=== PATIENT | male | born 1955 | race Caucasian/White ===

== ENCOUNTER 2016-04-16 09:09 | Inpatient (IN) ==
[2016-04-16 11:00] LABS: Basophils % 0.6 % (0.0-0.8); Eosinophils % 1.2 % (0.00-10.9); Hematocrit 21.9 VOL% (42.0-52.0); Immature Granulocytes % 0.3 %; Immature Granulocytes Absolute 0.01 #; Lymphocytes % 28.4 % (21.2-54.2); Mean Corpuscular HGB Conc 29.2 GM/DL (32-36); Mean Corpuscular Hemoglobin 24 PG (27-34); Mean Corpuscular Volume 80.8 FL (87-102); Mean Platelet Volume 10.3 FL (9.6-12.0); Monocytes # 0.4 10*3/uL (0.11-0.8); Monocytes % 10.4 % (1.7-12.7); Neutrophils % 59.1 % (38.7-73.9); Platelet Count 255 T/CUMM (130-400); Red Blood Count 2.71 MC/CUMM (3.8-5.5); Red Cell Distribution Width 14.7 % (9.3-17.3); White Blood Count 3.4 T/CUMM (4-12)
[2016-04-16 11:05] LABS: Hemoglobin 6.4 GM/DL (14.0-18.0)
--- NOTE | 2016-04-16 11:16 | Gastrointestinal H&P ---
Assessment and Plan (1) Iron (Fe) deficiency anemia Status: Acute Assessment and plan: We will admit and transfuse packed red blood cells for severe anemia. We will also need to consider possibility of IV iron due to his difficulty absorbing iron with his previous partial gastrectomy. Current Visit: Yes (2) Gastric outflow obstruction Status: Acute Assessment and plan: Plan repeat attempted EGD under fluoroscopy to allow wire to be passed and attempts to dilate his outflow restriction. Current Visit: Yes History of Present Illness Chief complaint: Severe iron deficiency anemia History of present illness: Mr. Platt is a 60 year old male Recently seen with complaints of progressive weakness, weight loss and recurrent nausea and vomiting. He has a prior history of partial gastric resection. 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 He has severe iron deficiency anemia with hematocrit of 24% is admitted now for transfusion of packed red blood cells due to high risk of comorbid conditions. We will also plan repeat attempt EGD under fluoroscopy to dilate his outlet obstruction. Possibility of surgery will also need to be entertained. Home Medications Medication Instructions Recorded Confirmed Type FLUoxetine [PROzac] 20 mg PO AC LUNCH 04/16/16 04/16/16 History Levothyroxine Tab [Synthroid Tab] 175 mcg PO DAILY@0700 04/16/16 04/16/16 History Morphine ER Tab [Ms Contin] 60 mg PO BID 04/16/16 04/16/16 History Morphine Sulfate [Morphine Sulfate 30 mg PO DIRECTED 04/16/16 04/16/16 History ER] Oxycodone HCl 15 mg PO Q8H PRN 04/16/16 04/16/16 History Pantoprazole Tab [Protonix Tab] 40 mg PO DAILY 04/16/16 04/16/16 History Ranitidine HCl [Zantac] 300 mg PO BEDTIME 04/16/16 04/16/16 History traZODone [Desyrel] 50 mg PO BEDTIME PRN 04/16/16 04/16/16 History Allergies Allergy/AdvReac Type Severity Reaction Status Date / Time No Known Allergies Allergy Verified 04/16/16 10:33 Medical,Surgical,& Family Hx - Medical History Rheumatology: History of;: Rheumatological Problems Gastrointestinal: History of: Bowel Obstruction, GI Problems Musculoskeletal: History of: Musculoskeletal Problems - Surgical History Abdominal Surgeries: Surgical HX of: Abdominal Surgery, Colonoscopy, EGD - Social History Smoking Status: Never smoker Frequency of Alcohol Use: None Type of Drug Use: None - Constitutional Constitutional: Present: fatigue. Absent: anorexia, chills, fever(s) - EENT Eyes: Absent: diplopia Ears: Absent: tinnitus Nose, mouth and throat: Absent: dysphagia, epistaxis - Cardiovascular Cardiovascular: Absent: chest pain at rest, chest pain with activity, edema - Respiratory Respiratory: Present: dyspnea on exertion - Gastrointestinal Gastrointestinal: Present: abdominal pain, bloating, nausea, vomiting - Genitourinary Genitourinary: Absent: flank pain, hematuria - Neurological Neurological: Absent: abnormal gait, abnormal speech - Psychiatric Psychiatric: Absent: anxiety - Endocrine Endocrine: Present: fatigue. Absent: cold intolerance, heat intolerance - Hematologic/Lymphatic Hematologic/Lymphatic: Absent: easy bleeding, easy bruising, lymphadenopathy Exam - Constitutional Vitals: Period Temp Pulse Resp BP Sys/[place] Pulse Ox Last 24 Hr 98.2 F 68 20 109/72 99 General appearance: normal weight, no acute distress - Head Head exam: Present: normal inspection, normocephalic, atraumatic - Eye Eye exam: Present: EOMI. Absent: conjunctival injection, scleral icterus Pupils: Present: VELVET. Absent: dilated - ENT ENT exam: Present: normal oropharynx - Neck Neck exam: Absent: lymphadenopathy, thyromegaly - Respiratory Respiratory exam: Present: clear to auscultation bilaterally. Absent: accessory muscle use, rales - Cardiovascular Cardiovascular exam: Present: regular rate and rhythm. Absent: systolic murmur - GI/Abdominal GI/Abdominal exam: Present: normal bowel sounds. Absent: ascites, mass - Extremities Exam Extremities exam: Absent: edema - Back Exam Back exam: Present: normal inspection - Neurological Exam Neurological exam: Present: alert, oriented X3 - Psychiatric Psychiatric exam: Present: normal affect, normal mood - Skin Skin exam: Present: warm, dry, pallor Results - Labs CBC & BMP: 04/16/16 10:42 Quality Measures - Stroke Symptom Onset Unknown: No
[2016-04-16 11:35] LABS: Albumin 3.1 G/DL (3.4-5.0); Bilirubin,Total 0.7 MG/DL (0.2-1.0); Calcium 8.1 MG/DL (8.5-10.1); Osmolality,Calculated 290.7 MOS/KG (273-304); Potassium 4.7 MMOL/L (3.5-5.1); Total Protein 5.6 G/DL (6.4-8.3)
[2016-04-16] MEDS ORDERED: SODIUM CHLORIDE 0.9% 250 ML IV PRN (11:37)
[2016-04-16] MEDS: SODIUM CHLORIDE 0.9% 1,000 ML IV SCH ×2 (13:27→21:30)
[2016-04-17] MEDS: SODIUM CHLORIDE 0.9% 1,000 ML IV SCH ×2 (04:15→14:48)
[2016-04-17 05:59] LABS: Basophils % 0.9 % (0.0-0.8); Eosinophils # 0.1 10*3/uL (0.0-0.87); Hematocrit 26.3 VOL% (42.0-52.0); Hemoglobin 8.2 GM/DL (14.0-18.0); Immature Granulocytes % 0.3 %; Immature Granulocytes Absolute 0.01 #; Lymphocytes # 1.3 10*3/uL (1.4-4.0); Lymphocytes % 38.3 % (21.2-54.2); Mean Corpuscular HGB Conc 31.2 GM/DL (32-36); Mean Corpuscular Hemoglobin 25 PG (27-34); Mean Corpuscular Volume 78.7 FL (87-102); Mean Platelet Volume 10.6 FL (9.6-12.0); Monocytes # 0.4 10*3/uL (0.11-0.8); Monocytes % 11.8 % (1.7-12.7); Neutrophils # 1.6 10*3/uL (1.4-7.4); Neutrophils % 46.7 % (38.7-73.9); Platelet Count 253 T/CUMM (130-400); Red Blood Count 3.34 MC/CUMM (3.8-5.5); Red Cell Distribution Width 14.7 % (9.3-17.3); White Blood Count 3.5 T/CUMM (4-12)
[2016-04-17 06:33] LABS: Hypochromasia 1+
[2016-04-17 06:34] LABS: Microcytosis 1+; Platelet Estimate Adequate
[2016-04-17 06:39] LABS: Albumin 2.9 G/DL (3.4-5.0); Bilirubin,Total 0.5 MG/DL (0.2-1.0); Osmolality,Calculated 287.6 MOS/KG (273-304); Potassium 4.4 MMOL/L (3.5-5.1); Total Protein 5.5 G/DL (6.4-8.3)
[2016-04-17] MEDS ORDERED: LIDOCAINE 2% 5 ML VIAL ONE (11:50)
[2016-04-17] MEDS ORDERED: PROPOFOL 200 MG/20 ML VIAL IV ONE (11:50)
[2016-04-17] MEDS ORDERED: ONDANSETRON 4 MG/2 ML VIAL ONE (11:50)
--- NOTE | 2016-04-17 12:22 | Operative Note ---
Date of procedure: 04/17/16 Pre-op diagnosis: Anastomotic stricture Procedure: EGD with fluoroscopically guided wire placement for attempted savory dilatation and TTS balloon dilation Anastomotic stricture noted on prior EGD unable to pass with the scope now for repeat attempt with fluoroscopic guidance. Informed symptoms obtained the patient He was sedated with [facility] anesthesia anesthesia protocol. Patient was placed in left lateral decubitus position the Olympus flexible video upper endoscope was inserted into the oral cavity under direct vision the esophagus was intubated. Findings esophagus-normal esophageal mucosa throughout Stomach-normal insufflation there is retained food and again notation is made of his Billroth II anatomy with occluded E efferent limb. We were able to easily intubate the afferent limb. Subsequently a guidewire was passed through the anastomotic stricture under fluoroscopic guidance. Utilizing is a 51 savory dilator was passed without difficulty. The guidewire dilator were removed and subsequently repeat endoscopy revealed continued obstruction and inability to pass the endoscope. It was subsequently elected to initiate TTS balloon dilatation and a in full insufflation to 18 mm balloon for 30 seconds this was deflated and then it was again inflated to 19 mm for a full minute. This was deflated and at this point we could get the scope to pass the anastomosis. No tumor or other restriction was identified. No clear perforation or active bleeding was noted. The procedure was terminated patient discharged recovery in good condition. Postop diagnosis 1. 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 Will observe clinical response and check upper GI series to document patency. Repeat dilatation versus surgical revision will be discussed. Anesthesia: [facility] Surgeon / Physician: Flip Stearns Estimated blood loss: none Specimens: none sent Condition: stable Disposition: post procedure unit Results - Labs CBC & BMP: 04/17/16 05:30 04/17/16 05:30 Discharge Plan - Discharge Medications No Action FLUoxetine [PROzac] 20 mg PO AC LUNCH traZODone [Desyrel] 50 mg PO BEDTIME PRN PRN Reason: Insomnia Morphine Sulfate [Morphine Sulfate ER] 30 mg PO DIRECTED Ranitidine HCl [Zantac] 300 mg PO BEDTIME Oxycodone HCl 15 mg PO Q8H PRN PRN Reason: Pain Morphine ER Tab [Ms Contin] 60 mg PO BID Levothyroxine Tab [Synthroid Tab] 175 mcg PO DAILY@0700 Pantoprazole Tab [Protonix Tab] 40 mg PO DAILY - Follow Up or Referral - Forms/Instructions
--- NOTE | 2016-04-17 12:28 | Anesthesia ---
Anesthesia Post OP - Post Ansesthetic Evaluation Patient seen in post op: Yes Resp: within normal limits CV: within normal limits Mental: within normal limits Temp: within normal limits [id number]: within normal limits Nausea and Vomiting: within normal limits Pain: within normal limits
[2016-04-17] MEDS ORDERED: SODIUM CHLORIDE 0.9% IV ONE (12:45)
[2016-04-17] MEDS ORDERED: IRON DEXTRAN IV ONE (12:45)
[2016-04-17] MEDS ORDERED: traZODone 50 MG TABLET PO PRN (14:32)
[2016-04-17] MEDS: MORPHINE ER 30 MG TABLET PO SCH ×2 (14:55→20:17)
[2016-04-17] MEDS: oxyCODONE IR 5 MG TABLET PO PRN (14:56)
--- NOTE | 2016-04-17 15:46 | XRay Report ---
XR abdomen 2V Indication: Balloon dilation of anastomotic stricture. Abdomen 3 views: Cholecystectomy clips noted. Ingested material is present within the stomach which appears distended. Several loops of gaseous distended but not dilated small bowel present centrally, and there is a slightly prominent right upper quadrant colon noted that is not dilated, but overlies the liver. Some stool and gas seen in the colon, including the rectal vault. No free air identified. Impression: Somewhat unusual bowel gas pattern without clear obstruction present, and no evidence of pneumoperitoneum. Central gaseous distended small bowel is present but stool and gas is present in the colon as well. Suspect severe ileus. Gastric contents are of indeterminate significance. PROCEDURE INTERPRETED AT [facility] DEPARTMENT OF RADIOLOGY Final Report Signed by: Luis A Dumont M.D.
[2016-04-17] MEDS: ALUMINUM/MAGNES/SIMETH MAX STR 30 ML UDCUP PO PRN (16:26)
[2016-04-17] MEDS: HYDROmorphone 2 MG/1 ML VIAL IV PRN (16:27)
[2016-04-17] MEDS: FAMOTIDINE 20 MG TABLET PO SCH (20:17)
[2016-04-18] MEDS: SODIUM CHLORIDE 0.9% 1,000 ML IV SCH ×3 (00:15→16:30)
[2016-04-18] MEDS: oxyCODONE IR 5 MG TABLET PO PRN ×2 (04:37→16:29)
[2016-04-18] MEDS: LEVOTHYROXINE 175 MCG TABLET PO SCH (06:37)
[2016-04-18 06:42] LABS: Basophils % 0.1 % (0.0-0.8); Hematocrit 28.3 VOL% (42.0-52.0); Hemoglobin 8.5 GM/DL (14.0-18.0); Immature Granulocytes % 0.5 %; Immature Granulocytes Absolute 0.09 #; Lymphocytes # 1.2 10*3/uL (1.4-4.0); Lymphocytes % 6.5 % (21.2-54.2); Mean Corpuscular Hemoglobin 25 PG (27-34); Mean Corpuscular Volume 81.6 FL (87-102); Mean Platelet Volume 10.8 FL (9.6-12.0); Monocytes # 0.5 10*3/uL (0.11-0.8); Monocytes % 2.5 % (1.7-12.7); Neutrophils % 90.4 % (38.7-73.9); Platelet Count 257 T/CUMM (130-400); Red Blood Count 3.47 MC/CUMM (3.8-5.5); White Blood Count 18.8 T/CUMM (4-12)
--- NOTE | 2016-04-18 08:17 | Gastrointestinal Progress Note ---
Assessment and Plan (1) Small bowel anastomotic stricture Status: Acute Assessment and plan: This patient is being seen for Dr. Stearns who is off this weekend. This patient has Billroth II anatomy and was found yesterday to have an anastomotic stricture of the efferent limb on EGD that required balloon dilation. Post- dilation he did experience some significant abdominal pain but this pain has improved over the evening time down to 5 out of 10 in intensity. The patient has chronic pain due to psoriatic arthritis, he did have a low-grade temperature last night to 100.8 but this is spontaneously improved. His white count however has increased from 3.4-->18.8, and this combined with the recent balloon dilatation of the efferent limb of the Billroth II other reasons I'm going to start him on some Cipro and Flagyl. We will see how he tolerates a clear liquid diet today and we may advance his diet tomorrow if he is still improving, and his white count is down. Clinically he seems vastly improved and I suspect he had some transient bacteremia with the dilation. He does not have an acute abdomen. Current Visit: Yes (2) Iron (Fe) deficiency anemia Status: Acute Assessment and plan: Iron dextran given, we will continue to monitor his hematocrit to see if he improves with this bolus of iron over time. Current Visit: Yes (3) Gastric outflow obstruction Status: Acute Assessment and plan: We will watch and see how well he tolerates his clear liquid diet at this point , anastomosis was visualized directly after the dilation and did not appear to have any suspicious features of perforation. Cipro and Flagyl started due to increased white blood cell count, we will continue to monitor this along with physical exam. Hold off on advancement of diet for now. Current Visit: Yes Gastroenterology - PN: Subj Interval history: The patient experienced a low-grade temperature last night but was able to pass a great deal of flatus and his pain is now down to about 5 out of 10 in intensity. White blood cell count has increased from 3000-->18,000 and oh his abdomen feels better we'll likely start some Cipro/Flagyl as he is penicillin allergic to help cover him for transient bacteremia. Exam (Progress Note) - Constitutional Vitals: Period Temp Pulse Resp BP Sys/[place] Pulse Ox Last 24 Hr 98.2 F-100.8 F 48-89 14-19 96-126/48-80 89-100 General appearance: no acute distress - Head Head exam: Present: normocephalic - Eye Eye exam: Present: EOMI Pupils: Present: VELVET - Cardiovascular Cardiovascular exam: Present: regular rate and rhythm - GI/Abdominal GI/Abdominal exam: Present: normal bowel sounds, tenderness (mild periumbilical tenderness), soft. Absent: distended, guarding, rebound - Extremities Exam Extremities exam: Absent: edema - Neurological Exam Neurological exam: Present: alert, oriented X3, CN II-XII intact. Absent: motor sensory deficit - Psychiatric Psychiatric exam: Present: normal affect, normal mood - Skin Skin exam: Present: warm Results - Labs CBC & BMP: 04/18/16 05:55 04/17/16 05:30
[2016-04-18] MEDS: CIPROFLOXACIN INJ 400 MG in PREMIX 1 EACH IV SCH ×2 (09:01→20:14)
[2016-04-18] MEDS: PANTOPRAZOLE 40 MG TABLET PO SCH (09:02)
[2016-04-18] MEDS: MORPHINE ER 30 MG TABLET PO SCH ×3 (09:02→20:13)
[2016-04-18] MEDS: metroNIDAZOLE INJ 500 MG in PREMIX 1 EACH IV SCH ×2 (11:43→18:46)
[2016-04-18] MEDS: FLUoxetine 20 MG CAPSULE PO SCH (11:43)
[2016-04-18] MEDS: FAMOTIDINE 20 MG TABLET PO SCH (20:13)
[2016-04-18] MEDS: ALUMINUM/MAGNES/SIMETH MAX STR 30 ML UDCUP PO PRN (20:13)
[2016-04-18] MEDS: ACETAMINOPHEN 325 MG TABLET PO PRN (23:44)
[2016-04-19] MEDS: metroNIDAZOLE INJ 500 MG in PREMIX 1 EACH IV SCH ×3 (02:57→17:05)
[2016-04-19] MEDS: LEVOTHYROXINE 175 MCG TABLET PO SCH (06:26)
[2016-04-19 06:43] LABS: Basophils % 0.2 % (0.0-0.8); Hematocrit 27.6 VOL% (42.0-52.0); Hemoglobin 8.4 GM/DL (14.0-18.0); Immature Granulocytes % 1.1 %; Immature Granulocytes Absolute 0.16 #; Lymphocytes % 6.8 % (21.2-54.2); Mean Corpuscular HGB Conc 30.4 GM/DL (32-36); Mean Corpuscular Hemoglobin 25 PG (27-34); Mean Corpuscular Volume 80.5 FL (87-102); Mean Platelet Volume 11.4 FL (9.6-12.0); Monocytes # 0.5 10*3/uL (0.11-0.8); Monocytes % 3.4 % (1.7-12.7); Neutrophils # 13.4 10*3/uL (1.4-7.4); Neutrophils % 88.5 % (38.7-73.9); Platelet Count 240 T/CUMM (130-400); Red Blood Count 3.43 MC/CUMM (3.8-5.5); Red Cell Distribution Width 15.2 % (9.3-17.3); White Blood Count 15.2 T/CUMM (4-12)
[2016-04-19] MEDS: SODIUM CHLORIDE 0.9% 1,000 ML IV SCH ×2 (07:11→17:42)
--- NOTE | 2016-04-19 08:29 | Gastrointestinal Progress Note ---
Assessment and Plan (1) Small bowel anastomotic stricture Status: Acute Assessment and plan: This patient is being seen for Dr. Stearns who is off this weekend. This patient has Billroth II anatomy and was found yesterday to have an anastomotic stricture of the efferent limb on EGD that required balloon dilation. Post- dilation he did experience some significant abdominal pain but this pain has improved over the evening time down to 5 out of 10 in intensity. The patient has chronic pain due to psoriatic arthritis, he did have a low-grade temperature last night to 100.8 but this is spontaneously improved. His white count however has increased from 3.4-->18.8, and this combined with the recent balloon dilatation of the efferent limb of the Billroth II other reasons I'm going to start him on some Cipro and Flagyl. We will see how he tolerates a clear liquid diet today and we may advance his diet tomorrow if he is still improving, and his white count is down. Clinically he seems vastly improved and I suspect he had some transient bacteremia with the dilation. He does not have an acute abdomen. 04/19/16-- the patient is again seen today after spiking a temperature last night up to 102.9 at about 11 p.m. Temperature is improved now. He notes he was started on Flagyl and Cipro due to his penicillin allergy yesterday morning. No blood cultures have been obtained but I have written to obtain these temperature gets above 101 today. Due to the white blood cell count going up to 18,800 (currently down to 15.2) and the recent dilation going to have the patient undergo CT scanning with Gastrografin contrast to look for extraluminal abscess/contrast extravasation. We may need to get surgery involved. The patient has some pain in his belly but states that this is a 5 out of 10 similar to yesterday. Most of his pain is in the back. CBC written for tomorrow as well. Current Visit: Yes (2) Iron (Fe) deficiency anemia Status: Acute Assessment and plan: Iron dextran given, we will continue to monitor his hematocrit to see if he improves with this bolus of iron over time. 04/19/16-- The iron dextran infused without difficulty, hematocrit stable at 27.6%. This should improve over time. Current Visit: Yes (3) Gastric outflow obstruction Status: Acute Assessment and plan: We will watch and see how well he tolerates his clear liquid diet at this point , anastomosis was visualized directly after the dilation and did not appear to have any suspicious features of perforation. Cipro and Flagyl started due to increased white blood cell count, we will continue to monitor this along with physical exam. Hold off on advancement of diet for now. 04/19/16--the temperature increased to 102.9 is concerning for transient bacteremia versus per luminal abscess, we are awaiting a CT scan with Gastrografin contrast today to see if extravasation is present. His kidney function will allow for IV contrast as well. We may need to involve surgery if abscess is seen for surgical revision of the Billroth II/drainage vs. IR perc. drain. Current Visit: Yes Gastroenterology - PN: Subj Interval history: This is a patient of Dr. Stearns'praveen who recently had a efferent limb of Billroth II balloon dilated on 04/17/16 due to stricturing. The patient is still having some abdominal pain which he describes as 5 out of 10 in intensity in the periumbilical region. This states that this is less than his back pain which he describes as 7 out of 10 in intensity. Unfortunately over the evening time, approximately 11 p.m. last night patient spiked a temperature up to 102.9. I was not called and no blood cultures were taken. The patient was started yesterday on a combination of Cipro and Flagyl due to an increase in white blood cell count from 3000-->18,000. After the initiation of antibiotics this is improved down to 15,000, his belly seems less distended he is having brown diarrhea clinically. He is tolerating his clears. Exam (Progress Note) - Constitutional Vitals: Period Temp Pulse Resp BP Sys/[place]agua Pulse Ox Last 24 Hr 98.6 F-102.9 F 68-87 18-18 96-126/55-68 90-99 General appearance: no acute distress - Head Head exam: Present: normocephalic - Eye Eye exam: Present: EOMI - Respiratory Respiratory exam: Present: clear to auscultation bilaterally. Absent: rhonchi, wheezes - Cardiovascular Cardiovascular exam: Present: regular rate and rhythm - GI/Abdominal GI/Abdominal exam: Present: normal bowel sounds, tenderness (periumbilical mild tenderness to palpation but certainly no guarding or rebound), soft. Absent: distended, guarding, rebound - Extremities Exam Extremities exam: Present: normal inspection - Neurological Exam Neurological exam: Present: alert, oriented X3 - Psychiatric Psychiatric exam: Present: normal affect, normal mood, anxious - Skin Skin exam: Present: warm Results - Labs CBC & BMP: 04/19/16 05:24 04/17/16 05:30
[2016-04-19] MEDS: MORPHINE ER 30 MG TABLET PO SCH ×3 (08:59→20:40)
[2016-04-19] MEDS: PANTOPRAZOLE 40 MG TABLET PO SCH (08:59)
[2016-04-19] MEDS: CIPROFLOXACIN INJ 400 MG in PREMIX 1 EACH IV SCH ×2 (08:59→20:42)
--- NOTE | 2016-04-19 10:55 | CT Report ---
History: Fever, elevated white blood cell count. Abdominal pain. Recent balloon dilatation of Billroth II anastomosis Date: 04/19/2016 Study: CT abdomen with IV and oral contrast Comparison exam: Abdominal CT May 10, 2012 Technique: Spiral CT sections were obtained from the lung bases to the iliac crests following oral contrast and 100 mL Omnipaque 350 IV. Total DLP measures 511.4 mGy*cm. Critical test result. Dr. Carty was given a preliminary verbal report by telephone at 10:43 AM There is mild strandy subsegmental atelectasis in the lung bases. There is mild left greater than right pleural effusion. There is mild perihepatic and perisplenic ascites. There is some minimal gas density bubble formation under the right hemidiaphragm compatible with pneumoperitoneum, measuring less than 3 cc. There is mild diffuse fatty infiltration of the liver without definite discrete hepatic mass. There is slight biliary ectasia which could be the patient's baseline postsurgical appearance in this patient status post previous cholecystectomy. The spleen, pancreas, adrenal glands, and kidneys are generally unremarkable. There is bilateral renal excretion without hydronephrosis. The patient is status post previous Billroth II procedure. There is asymmetric mucosal thickening at the gastrojejunostomy surgical anastomosis which could be inflammatory rather than neoplastic. There is no obvious large rent at the anastomotic site/presumed angioplasty site. There is no well-circumscribed fluid collection to suggest abscess. There is a tiny periumbilical hernia containing only fat. There is diverticulosis without tiffany diverticulitis. There is no aneurysm of the abdominal aorta. There is some scattered degenerative disc disease of the spine. Impression: Minimal pneumoperitoneum, suggesting underlying perforated viscus. No abscess is seen where visualized. There is some mild perihepatic and perisplenic ascites. There is mucosal thickening of an irregular nature at the gastrojejunostomy anastomosis. This could be related to inflammatory change rather than neoplasm. Mild bibasilar atelectasis and pleural effusion PROCEDURE INTERPRETED AT [facility] DEPARTMENT OF RADIOLOGY Final Report Signed by: Dr. Betsy Walsh
[2016-04-19] MEDS: FLUoxetine 20 MG CAPSULE PO SCH (11:18)
--- NOTE | 2016-04-19 12:32 | General Surgery Consult Note ---
Assessment and Plan - Time spent with patient Time spent with patient: Less than 30 minutes (1) Intra-abdominal free air of unknown etiology Status: Acute Assessment and plan: Impression: 1. Minimal amount of intraperitoneal free air following dilatation of stricture 2. Gastric outlet obstruction due to stenosis status post dilatation Plan: We will observe for now with IV fluids and sips of water. Surgery if he becomes worse But if he remains stable and improved without problems and we may be able to just observe it for now. Current Visit: Yes History of Present Illness Chief complaint: small amount of free air following dilatation History of present illness: Mr. Platt is a 60 year old male white who in 2012 Dr. Hawley did a Billroth II surgery on the patient. He returns with a stenosis of the afferent limb and Dr. Stearns took him to endoscopy and did a EGD with a dilatation of the an anastomotic stenosis. Essentially did well complaining a little back pain a little fever and elevated white count the next day. White count is down 15,000 today and generally feeling okay but CT scan showed a small amount of free air in the area of the dilatation anastomosis. No fluid seen no abscess and there was no drainage of Gastrografin at the time of the CT. He generally looks in pretty good shape with minimal tenderness and just hypoactive bowel sounds at this time. Probably best to just observe him at this point time with IV fluids and antibiotics and just him sips of water for now. Home Medications Medication Instructions Recorded Confirmed Type FLUoxetine [PROzac] 20 mg PO AC LUNCH 04/16/16 04/16/16 History Levothyroxine Tab [Synthroid Tab] 175 mcg PO DAILY@0700 04/16/16 04/16/16 History Morphine ER Tab [Ms Contin] 60 mg PO BID 04/16/16 04/16/16 History Morphine Sulfate [Morphine Sulfate 30 mg PO DIRECTED 04/16/16 04/16/16 History ER] Oxycodone HCl 15 mg PO Q8H PRN 04/16/16 04/16/16 History Pantoprazole Tab [Protonix Tab] 40 mg PO DAILY 04/16/16 04/16/16 History Ranitidine HCl [Zantac] 300 mg PO BEDTIME 04/16/16 04/16/16 History traZODone [Desyrel] 50 mg PO BEDTIME PRN 04/16/16 04/16/16 History Allergies Allergy/AdvReac Type Severity Reaction Status Date / Time Penicillins Allergy RASH Verified 04/17/16 11:19 Medical,Surgical,& Family Hx - Medical History Rheumatology: History of;: Rheumatological Problems Gastrointestinal: History of: Bowel Obstruction, GI Problems Musculoskeletal: History of: Musculoskeletal Problems - Surgical History Abdominal Surgeries: Surgical HX of: Abdominal Surgery, Colonoscopy, EGD - Social History Smoking Status: Never smoker Frequency of Alcohol Use: None Type of Drug Use: None 12 point system: reviewed and no additional remarkable complaints except as stated Exam - Constitutional Vitals: Period Temp Pulse Resp BP Sys/[place] Pulse Ox Last 24 Hr 98.6 F-102.9 F 78-87 18-18 103-126/58-68 94-99 General appearance: mild distress - Head Head exam: Present: normal inspection - ENT ENT exam: Present: normal exam - Neck Neck exam: Present: normal inspection - Respiratory Respiratory exam: Present: clear to auscultation bilaterally, rales - Cardiovascular Cardiovascular exam: Present: RRR - GI/Abdominal GI/Abdominal exam: Present: hypoactive bowel sounds, tenderness (mild in the RUQ ), soft. Absent: guarding - Extremities Exam Extremities exam: Present: normal inspection - Neurological Exam Neurological exam: Present: alert, oriented X3, CN II-XII intact - Skin Skin exam: Present: normal color, warm, dry Quality Measures - Stroke Symptom Onset Unknown: No Results - Labs CBC & BMP: 04/19/16 05:24 04/17/16 05:30 Lab Results: I have reviewed the past 24 hour labs
[2016-04-19] MEDS: ACETAMINOPHEN 325 MG TABLET PO PRN (14:30)
[2016-04-19] MEDS: oxyCODONE IR 5 MG TABLET PO PRN (18:22)
[2016-04-19] MEDS: FAMOTIDINE 20 MG TABLET PO SCH (20:41)
[2016-04-20] MEDS: SODIUM CHLORIDE 0.9% 1,000 ML IV SCH ×3 (02:15→22:44)
[2016-04-20] MEDS: metroNIDAZOLE INJ 500 MG in PREMIX 1 EACH IV SCH ×4 (02:31→17:36)
[2016-04-20 06:20] LABS: Basophils % 0.2 % (0.0-0.8); Hematocrit 25.3 VOL% (42.0-52.0); Hemoglobin 7.8 GM/DL (14.0-18.0); Immature Granulocytes % 1.3 %; Immature Granulocytes Absolute 0.21 #; Lymphocytes # 0.7 10*3/uL (1.4-4.0); Lymphocytes % 4.3 % (21.2-54.2); Mean Corpuscular HGB Conc 30.8 GM/DL (32-36); Mean Corpuscular Hemoglobin 25 PG (27-34); Mean Corpuscular Volume 79.8 FL (87-102); Mean Platelet Volume 10.9 FL (9.6-12.0); Monocytes # 0.6 10*3/uL (0.11-0.8); Monocytes % 3.7 % (1.7-12.7); Neutrophils # 14.7 10*3/uL (1.4-7.4); Neutrophils % 90.5 % (38.7-73.9); Platelet Count 237 T/CUMM (130-400); Red Blood Count 3.17 MC/CUMM (3.8-5.5); Red Cell Distribution Width 15.5 % (9.3-17.3); White Blood Count 16.2 T/CUMM (4-12)
[2016-04-20] MEDS: LEVOTHYROXINE 175 MCG TABLET PO SCH (06:31)
[2016-04-20 06:43] LABS: Hypochromasia 1+; Polychromasia Slight
[2016-04-20 06:50] LABS: Albumin 2.5 G/DL (3.4-5.0); Bilirubin,Total 0.9 MG/DL (0.2-1.0); Calcium 7.6 MG/DL (8.5-10.1); Osmolality,Calculated 284.8 MOS/KG (273-304); Potassium 4.1 MMOL/L (3.5-5.1); Total Protein 5.3 G/DL (6.4-8.3)
--- NOTE | 2016-04-20 08:20 | Gastrointestinal Progress Note ---
<Ellen Law - Last Filed: 04/20/16 08:16> Assessment and Plan (1) Small bowel anastomotic stricture Status: Acute Assessment and plan: 04/20-Abd pain over weekend with findings of small amount of free air under right hemidiaphragm. Tolerating jellos, liquids only at present. Hemoglobin down from 8.4 to 7.8 w/o overt bleeding. WBC trending down at 16.2. Continue to monitor at present time. Plan and addendum to follow by Dr Stearns. Current Visit: Yes Gastroenterology - PN: Subj Interval history: CC: Anastomotic stricture Pt is awake and alert lying in bed. States he is feeling better today after he has a large watery bowel movement. Denies any melena or hematochezia. Hgb down from 8.4 to 7.8. WBC trending down. States that he is having some continued pain but is afraid to take the narcotics due to made him sick yesterday on an empty stomach. He states the pain is manageable at present time. Events over the weekend noted with small amount of free air found on CT. Dr Kang was consulted and felt this is not surgical at present time. Pt was only able to tolerate jello and liquids over the weekend. He is non toxic appearing this morning, seems to be fairly comfortable. Abdomen is soft, nontender. ROS: Denies SOB or chest pain Exam (Progress Note) - Constitutional Vitals: Period Temp Pulse Resp BP Sys/[place] Pulse Ox Last 24 Hr 98.2 F-100.2 F 72-87 14-18 109-126/62-70 93-96 General appearance: normal weight, no acute distress - Head Head exam: Present: normal inspection, normocephalic - Eye Eye exam: Present: other (lids and conjunctiva unremarkable). Absent: scleral icterus - ENT ENT exam: Present: normal exam, normal oropharynx - Neck Neck exam: Present: normal inspection - Respiratory Respiratory exam: Present: clear to auscultation bilaterally. Absent: rales, rhonchi, wheezes - Cardiovascular Cardiovascular exam: Present: regular rate and rhythm. Absent: diastolic murmur , JVD, systolic murmur - GI/Abdominal GI/Abdominal exam: Present: normal bowel sounds, soft. Absent: ascites, distended, mass, organomegaly, tenderness - Extremities Exam Extremities exam: Present: normal inspection, full ROM - Back Exam Back exam: Present: normal inspection - Neurological Exam Neurological exam: Present: alert, oriented X3 - Psychiatric Psychiatric exam: Present: normal affect, normal mood - Skin Skin exam: Present: normal color, warm, dry Results - Labs CBC & BMP: 04/20/16 05:27 04/20/16 05:27 Lab Results: I have reviewed the past 24 hour labs <Flip Stearns - Last Filed: 04/20/16 18:22> Assessment and Plan (1) Iron (Fe) deficiency anemia Status: Acute Current Visit: Yes (2) Gastric outflow obstruction Status: Acute Current Visit: Yes Exam (Progress Note) - Constitutional Vitals: Period Temp Pulse Resp BP Sys/[place] Pulse Ox Last 24 Hr 97.9 F-100.2 F 67-87 14-18 110-141/60-76 93-97 Results - Labs CBC & BMP: 04/20/16 05:27 04/20/16 05:27
[2016-04-20] MEDS: CIPROFLOXACIN INJ 400 MG in PREMIX 1 EACH IV SCH ×2 (08:55→20:57)
[2016-04-20] MEDS: PANTOPRAZOLE 40 MG TABLET PO SCH (08:57)
[2016-04-20] MEDS: MORPHINE ER 30 MG TABLET PO SCH ×3 (08:57→20:56)
[2016-04-20] MEDS: HYDROmorphone 2 MG/1 ML VIAL IV PRN (09:02)
[2016-04-20] MEDS: FLUoxetine 20 MG CAPSULE PO SCH ×2 (10:26→11:23)
--- NOTE | 2016-04-20 11:43 | General Surgery Progress Note ---
Assessment and Plan (1) Intra-abdominal free air of unknown etiology Status: Acute Assessment and plan: Impression: 1. Minimal amount of intraperitoneal free air following dilatation of stricture 2. Gastric outlet obstruction due to stenosis status post dilatation Plan: We will observe for now with IV fluids and sips of water. Surgery if he becomes worse But if he remains stable and improved without problems and we may be able to just observe it for now. 04/20/2016 Patient had a fairly good night in the evening his white count is 16,000 today and his hematocrit is down to 25. He's not complained of a lot of discomfort at this time has had no nausea during the night. His abdomen is flat soft there is hypoactive bowel sounds no unusual guarding or tenderness noted. At this point he seems to be stable with no unusual problems associated with the air the seen. He's tolerated water without any problems. I think the well to go ahead and try some clear liquids on him and see how he does with that. Current Visit: Yes Subjective Patient reports: Present: no new complaints, feels better, tolerating liquids well, afebrile. Absent: vomiting Exam - Constitutional Vitals: Period Temp Pulse Resp BP Sys/[place] Pulse Ox Last 24 Hr 97.9 F-100.2 F 72-87 14-18 109-126/62-73 93-97 General appearance: mild distress - Head Head exam: Present: normal inspection - ENT ENT exam: Present: normal exam - Neck Neck exam: Present: normal inspection - Respiratory Respiratory exam: Present: clear to auscultation bilaterally, rales - Cardiovascular Cardiovascular exam: Present: RRR - GI/Abdominal GI/Abdominal exam: Present: hypoactive bowel sounds, soft. Absent: distended, tenderness - Extremities Exam Extremities exam: Present: normal inspection - Neurological Exam Neurological exam: Present: alert, oriented X3, CN II-XII intact - Skin Skin exam: Present: normal color, warm, dry Results - Labs CBC & BMP: 04/20/16 05:27 04/20/16 05:27 Lab Results: I have reviewed the past 24 hour labs Quality Measures - Stroke Symptom Onset Unknown: No
--- NOTE | 2016-04-20 13:10 | Physician Query Form ---
CLICK EDIT DOCUMENT TO SELECT QUERY ANSWER --> OK --> SIGN Madison Hopkins RN, CCDS Certified Clinical Pure Culture Operator W) [phone] (f) [phone] [email or web address] PROVIDERS: Make your selection(s) from the choices in EACH section by typing an "x" and enter comments in the comment section. Please use your independent medical judgment in providing your response. This request does not imply that any particular answer is desired or expected. CLINICAL INDICATORS: (Providers should not edit this section) "Anastomotic stricture at the efferent limb of the Billroth II anastomosis now successfully balloon dilated". In your clinical opinion can you please clarify the location of the Dilation? Based on the above, could you clarify the appropriate diagnosis, if significant , that supports the above abnormalities and additional evaluation, monitoring, and/or treatment rendered: ( x) Anastomotic Stricture located in the duodenum ( ) Anastomotic Stricture located in the Jejunum ( ) Anastomotic stricture located in the ( ) Other, please specify: ( ) Clinically unable to determine COMMENTS: Use of terms such as suspected, likely, or probable (associated with a specific diagnosis that is being evaluated, monitored, or treated as if it exists) are acceptable and can be restated in the discharge summary if not ruled out. MTDD
[2016-04-20] MEDS: oxyCODONE IR 5 MG TABLET PO PRN (16:51)
[2016-04-20] MEDS: FAMOTIDINE 20 MG TABLET PO SCH (20:57)
[2016-04-21] MEDS: ACETAMINOPHEN 325 MG TABLET PO PRN (00:45)
[2016-04-21] MEDS: metroNIDAZOLE INJ 500 MG in PREMIX 1 EACH IV SCH ×3 (02:07→17:46)
[2016-04-21] MEDS: LEVOTHYROXINE 175 MCG TABLET PO SCH (06:09)
[2016-04-21 06:34] LABS: Calcium 7.5 MG/DL (8.5-10.1); Magnesium 2.1 MG/DL (1.8-2.4); Osmolality,Calculated 286.7 MOS/KG (273-304); Potassium 3.1 MMOL/L (3.5-5.1)
[2016-04-21] MEDS: PANTOPRAZOLE 40 MG TABLET PO SCH (08:32)
[2016-04-21] MEDS: MORPHINE ER 30 MG TABLET PO SCH ×3 (08:32→20:06)
[2016-04-21] MEDS: CIPROFLOXACIN INJ 400 MG in PREMIX 1 EACH IV SCH ×2 (08:32→20:06)
[2016-04-21] MEDS: ALUMINUM/MAGNES/SIMETH MAX STR 30 ML UDCUP PO PRN (08:32)
--- NOTE | 2016-04-21 08:38 | Discharge Summary ---
<AniEllen Cas - Last Filed: 04/23/16 12:58> Hospital Course - Hospital Course Hospital Course: Mr Platt was admitted on 04/17 following EGD for gastric outflow obstruction with a prior history of partial gastric resection. Pt has had progressive weakness and weight loss as well as nausea and vomiting over the last several weeks. He was admitted to observe following the procedure and underwent a repeat EGD with balloon dilation of the anastomotic stricture of the efferent limb of the Billroth II anastomosis under fluroscopy. He was also noted to be anemic and was given iron infusion during this hospital stay. Immediately following the procedure he did well however the next day he developed a low grade fever and some leukocytosis. He also had onset of abdominal pain with nausea. He was started on Cipro and Flagyl at that time however the pain continued. He had a CT of abdomen done which showed a small amount of free air under the right hemidiaphragm. Dr Kang was consulted however no surgical intervention was necessary with no acute abdomen and pt was non-toxic. He remained febrile at night however he has now been afebrile for 24 hours. He was since this time slowly had his diet resumed and has tolerated clear liquids without difficulty and advanced to full liquids and then soft diet which he is tolerating well. His hemoglobin has stabilized at 8.8. He will be discharged home on Bactrim and will have followup EGD on June [address] Stearns. Diagnosis - Discharge Diagnosis (1) Small bowel anastomotic stricture Status: Acute Specialty Discharge - Follow Up or Referrals Follow up with: Flip Stearns MD [Physician] - (needs upper scope on june 10. dr stearns office will call you with a time) Discharge Plan - Discharge Data Disposition: Disch To Home/Self Care Condition at Discharge: Stable Discharge Diet: advance to your usual diet Activity: resume usual activities as tolerated Hygiene: no restrictions Weight Bearing at Discharge: full weight bearing Driving: no restrictions - Discharge Medications New Sulfameth/Trimeth 800-160 Tab [Bactrim DS Tab] 1 tablet PO BID #10 tablet No Action FLUoxetine [PROzac] 20 mg PO AC LUNCH traZODone [Desyrel] 50 mg PO BEDTIME PRN PRN Reason: Insomnia Morphine Sulfate [Morphine Sulfate ER] 30 mg PO DIRECTED Ranitidine HCl [Zantac] 300 mg PO BEDTIME Oxycodone HCl 15 mg PO Q8H PRN PRN Reason: Pain Morphine ER Tab [Ms Contin] 60 mg PO BID Levothyroxine Tab [Synthroid Tab] 175 mcg PO DAILY@0700 Pantoprazole Tab [Protonix Tab] 40 mg PO DAILY - Follow Up or Referral Follow Up: Flip Stearns MD [Physician] - (needs upper scope on june 10. dr stearns office will call you with a time) - Forms/Instructions Instructions: Sulfamethoxazole/Trimethoprim (By mouth), Perforated Bowel (DC) Additional Discharge Instructions: Schedule pt for outpatient EGD on June [address] Stearns Exam - Constitutional Vitals: Period Temp Pulse Resp BP Sys/[place] Pulse Ox Last 24 Hr 97.5 F-99.0 F 68-84 16-18 110-125/54-70 91-95 General appearance: normal weight, no acute distress - Head Head exam: Present: normal inspection, normocephalic - Eye Eye exam: Present: other (lids and conjunctiva unremarkable). Absent: scleral icterus - ENT ENT exam: Present: normal exam, normal oropharynx - Neck Neck exam: Present: normal inspection - Respiratory Respiratory exam: Present: clear to auscultation bilaterally. Absent: rales, rhonchi, wheezes - Cardiovascular Cardiovascular exam: Present: regular rate and rhythm. Absent: diastolic murmur , JVD, systolic murmur - GI/Abdominal GI/Abdominal exam: Present: normal bowel sounds, soft. Absent: ascites, distended, mass, organomegaly, tenderness - Extremities Exam Extremities exam: Present: normal inspection, full ROM - Back Exam Back exam: Present: normal inspection - Neurological Exam Neurological exam: Present: alert, oriented X3 - Psychiatric Psychiatric exam: Present: normal affect, normal mood - Skin Skin exam: Present: normal color, warm, dry Discharge Results Labs on day of discharge: Labs from last 24 hours 04/23/16 04/23/16 08:51 08:51 Hgb 8.8 L Hct 29.9 L Sodium 147 H Potassium 4.2 Chloride 110 H Carbon Dioxide 27 Anion Gap 14.2 BUN 5 L Creatinine 0.60 L GFR Calculation 122 BUN/Creatinine Ratio 8.00 Glucose 163 H Calculated Osmolality 292.4 Calcium 7.7 L DS: Provider Date of admission: 04/16/16 10:26 Primary care physician: Sonny Barlow MD Attending physician on admission: Flip Stearns MD Consults: 04/16/16 10:33 Consult to Dietitian [CONS] Routine Reason for Dietitian: Other Consult Comment: weight loss 04/19/16 10:52 Consult to Physician [CONS] Routine Comment: pneumoperitoneum post bilroth limb dilation Consulting Provider: Mo Kang Consulting Provider Notified: Yes When should Consulting Provider be notified: Now Person Notified: Dr. Kang Date Notified: 04/19/16 Time Notified: 11:08 Consult Notification Comment: Dr. Carty also spoke with Dr. Kang Discharging clinician: Deuce Carter Expected date of discharge: 04/21/16 <Flip Stearns - Last Filed: 04/23/16 18:42> Diagnosis - Discharge Diagnosis (1) Iron (Fe) deficiency anemia Status: Acute (2) Gastric outflow obstruction Status: Acute
[2016-04-21 08:55] LABS: Hematocrit 25.7 VOL% (42.0-52.0); Hemoglobin 7.9 GM/DL (14.0-18.0)
--- NOTE | 2016-04-21 12:25 | Gastrointestinal Progress Note ---
<Ellen Law - Last Filed: 04/21/16 12:23> Assessment and Plan (1) Small bowel anastomotic stricture Status: Acute Assessment and plan: 04/21-No pain, N/V. Tolerating diet at present time. Continue to monitor for fever. Plan to possibly discharge home tomorrow if remains afebrile, tolerates diet, no pain. Plan and addendum to follow by DR Stearns. 04/20-Abd pain over weekend with findings of small amount of free air under right hemidiaphragm. Tolerating jellos, liquids only at present. Hemoglobin down from 8.4 to 7.8 w/o overt bleeding. WBC trending down at 16.2. Continue to monitor at present time. Plan and addendum to follow by Dr Stearns. Current Visit: Yes Gastroenterology - PN: Subj Interval history: CC: Small bowel anastomotic stricture Pt is seen, awake, alert, family at side. States he is feeling better today. He was able to tolerate some full liquids for lunch and denies any pain, nausea or vomiting. He did have a fever overnight of a 102. Because of this we will continue to observe him another night and if continues to tolerate his diet and afebrile for 24 hours will consider discharge home tomorrow. Abdomen is soft, nontender. ROS: Denies SOB or chest pain Exam (Progress Note) - Constitutional Vitals: Period Temp Pulse Resp BP Sys/[place] Pulse Ox Last 24 Hr 97.9 F-102.8 F 66-88 16-19 104-141/60-77 93-96 General appearance: normal weight, no acute distress - Head Head exam: Present: normal inspection, normocephalic - Eye Eye exam: Present: other (lids and conjunctiva unremarakble). Absent: scleral icterus - ENT ENT exam: Present: normal exam, normal oropharynx - Neck Neck exam: Present: normal inspection - Respiratory Respiratory exam: Present: clear to auscultation bilaterally. Absent: rales, rhonchi, wheezes - Cardiovascular Cardiovascular exam: Present: regular rate and rhythm. Absent: diastolic murmur , JVD, systolic murmur - GI/Abdominal GI/Abdominal exam: Present: normal bowel sounds, soft. Absent: ascites, distended, mass, organomegaly, tenderness - Extremities Exam Extremities exam: Present: normal inspection, full ROM - Back Exam Back exam: Present: normal inspection - Neurological Exam Neurological exam: Present: alert, oriented X3 - Psychiatric Psychiatric exam: Present: normal affect, normal mood - Skin Skin exam: Present: normal color, warm, dry Results - Labs CBC & BMP: 04/21/16 05:56 04/21/16 05:56 Lab Results: I have reviewed the past 24 hour labs <Flip Stearns - Last Filed: 04/21/16 17:51> Assessment and Plan (1) Iron (Fe) deficiency anemia Status: Acute Current Visit: Yes (2) Gastric outflow obstruction Status: Acute Current Visit: Yes Exam (Progress Note) - Constitutional Vitals: Period Temp Pulse Resp BP Sys/[place] Pulse Ox Last 24 Hr 97.9 F-102.8 F 62-88 16-20 100-123/60-77 93-98 Results - Labs CBC & BMP: 04/21/16 05:56 04/21/16 05:56
[2016-04-21] MEDS: FLUoxetine 20 MG CAPSULE PO SCH (12:48)
--- NOTE | 2016-04-21 14:14 | General Surgery Progress Note ---
Assessment and Plan - Time spent with patient Time spent with patient: Less than 30 minutes (1) Intra-abdominal free air of unknown etiology Status: Acute Assessment and plan: Impression: 1. Minimal amount of intraperitoneal free air following dilatation of stricture 2. Gastric outlet obstruction due to stenosis status post dilatation Plan: We will observe for now with IV fluids and sips of water. Surgery if he becomes worse But if he remains stable and improved without problems and we may be able to just observe it for now. 04/20/2016 Patient had a fairly good night in the evening his white count is 16,000 today and his hematocrit is down to 25. He's not complained of a lot of discomfort at this time has had no nausea during the night. His abdomen is flat soft there is hypoactive bowel sounds no unusual guarding or tenderness noted. At this point he seems to be stable with no unusual problems associated with the air the seen. He's tolerated water without any problems. I think the well to go ahead and try some clear liquids on him and see how he does with that. 04/21/2016 Patient seemed to of it better tolerating some full liquids without difficulty. Plan is to try to see if he can maintain himself nutritionally on this liquid for while for dances solid food. Dr. Stearns feel like we may have to scope him again at some point he may still come to surgery. Current Visit: Yes Subjective Patient reports: Present: no new complaints, pain is less, afebrile Exam - Constitutional Vitals: Period Temp Pulse Resp BP Sys/[place] Pulse Ox Last 24 Hr 97.9 F-102.8 F 66-88 16-19 104-141/60-77 93-96 General appearance: mild distress - Head Head exam: Present: normal inspection - ENT ENT exam: Present: normal exam - Neck Neck exam: Present: normal inspection - Respiratory Respiratory exam: Present: clear to auscultation bilaterally, rales - Cardiovascular Cardiovascular exam: Present: RRR - GI/Abdominal GI/Abdominal exam: Present: hypoactive bowel sounds, soft. Absent: distended, tenderness - Extremities Exam Extremities exam: Present: normal inspection - Neurological Exam Neurological exam: Present: alert, oriented X3, CN II-XII intact - Skin Skin exam: Present: normal color, warm, dry Results - Labs CBC & BMP: 04/21/16 05:56 04/21/16 05:56 Lab Results: I have reviewed the past 24 hour labs Quality Measures - Stroke Symptom Onset Unknown: No
[2016-04-21] MEDS: SODIUM CHLORIDE 0.9% 1,000 ML IV SCH (15:28)
[2016-04-21] MEDS: oxyCODONE IR 5 MG TABLET PO PRN (16:27)
[2016-04-21] MEDS: FAMOTIDINE 20 MG TABLET PO SCH (20:06)
[2016-04-22] MEDS: oxyCODONE IR 5 MG TABLET PO PRN (00:03)
[2016-04-22] MEDS: metroNIDAZOLE INJ 500 MG in PREMIX 1 EACH IV SCH ×3 (02:34→17:40)
[2016-04-22] MEDS: LEVOTHYROXINE 175 MCG TABLET PO SCH (06:08)
--- NOTE | 2016-04-22 08:42 | Gastrointestinal Progress Note ---
<AniEllen Cas - Last Filed: 04/22/16 08:38> Assessment and Plan (1) Small bowel anastomotic stricture Status: Acute Assessment and plan: 04/22-No pain. Tolerating full liquids well. Good BM today. Febrile overnight. Potassium 3.1. Will ad 40 meq potassium to IVF. Plan and addendum to follow by DR Stearns. 04/21-No pain, N/V. Tolerating diet at present time. Continue to monitor for fever. Plan to possibly discharge home tomorrow if remains afebrile, tolerates diet, no pain. Plan and addendum to follow by DR Stearns. 04/20-Abd pain over weekend with findings of small amount of free air under right hemidiaphragm. Tolerating jellos, liquids only at present. Hemoglobin down from 8.4 to 7.8 w/o overt bleeding. WBC trending down at 16.2. Continue to monitor at present time. Plan and addendum to follow by Dr Stearns. Current Visit: Yes Gastroenterology - PN: Subj Interval history: CC: Small bowel anastomotic stricture Pt is seen, awake and alert, sitting up in chair eating breakfast. He continues to tolerate full liquids well and states he had a good bowel movement this morning. He is noted to run fever overnight again up to 100.2. He denies any abdominal pain, nausea or vomiting. He is noted to have low potassium today at 3.1, down from 4.1. Hgb is holding at 7.9 at present. Abdomen is soft, nontender. ROS: Denies SOB or chest pain Exam (Progress Note) - Constitutional Vitals: Period Temp Pulse Resp BP Sys/[place] Pulse Ox Last 24 Hr 97.9 F-100.1 F 62-76 18-20 100-129/50-77 91-98 General appearance: normal weight, no acute distress - Head Head exam: Present: normal inspection, normocephalic - Eye Eye exam: Present: other (lids and conjunctiva unremarakble). Absent: scleral icterus - ENT ENT exam: Present: normal exam, normal oropharynx - Neck Neck exam: Present: normal inspection - Respiratory Respiratory exam: Present: clear to auscultation bilaterally. Absent: rales, rhonchi, wheezes - Cardiovascular Cardiovascular exam: Present: regular rate and rhythm. Absent: diastolic murmur , JVD, systolic murmur - GI/Abdominal GI/Abdominal exam: Present: normal bowel sounds, soft. Absent: ascites, distended, mass, organomegaly, tenderness - Extremities Exam Extremities exam: Present: normal inspection, full ROM - Back Exam Back exam: Present: normal inspection - Neurological Exam Neurological exam: Present: alert, oriented X3 - Psychiatric Psychiatric exam: Present: normal affect, normal mood - Skin Skin exam: Present: normal color, warm, dry Results - Labs CBC & BMP: 04/21/16 05:56 04/21/16 05:56 Lab Results: I have reviewed the past 24 hour labs <Flip Stearns - Last Filed: 04/22/16 16:58> Assessment and Plan (1) Iron (Fe) deficiency anemia Status: Acute Current Visit: Yes (2) Gastric outflow obstruction Status: Acute Current Visit: Yes Exam (Progress Note) - Constitutional Vitals: Period Temp Pulse Resp BP Sys/[place] Pulse Ox Last 24 Hr 98.5 F-100.1 F 68-76 18-19 109-148/38-77 91-95 Results - Labs CBC & BMP: 04/21/16 05:56 04/21/16 05:56
[2016-04-22] MEDS: PANTOPRAZOLE 40 MG TABLET PO SCH (09:31)
[2016-04-22] MEDS: MORPHINE ER 30 MG TABLET PO SCH ×3 (09:31→20:10)
[2016-04-22] MEDS: SODIUM CHLOR 0.9% KCL 40 MEQ 40 MEQ/1,000 ML BAG IV SCH ×2 (09:32→22:22)
[2016-04-22] MEDS: SODIUM CHLORIDE 0.9% 1,000 ML IV SCH (09:33)
[2016-04-22] MEDS: CIPROFLOXACIN INJ 400 MG in PREMIX 1 EACH IV SCH ×2 (11:08→20:11)
[2016-04-22] MEDS: FLUoxetine 20 MG CAPSULE PO SCH (13:24)
[2016-04-22] MEDS: FAMOTIDINE 20 MG TABLET PO SCH (20:11)
[2016-04-23] MEDS: metroNIDAZOLE INJ 500 MG in PREMIX 1 EACH IV SCH ×2 (01:53→11:32)
[2016-04-23] MEDS: LEVOTHYROXINE 175 MCG TABLET PO SCH (06:00)
[2016-04-23] MEDS: SODIUM CHLOR 0.9% KCL 40 MEQ 40 MEQ/1,000 ML BAG IV SCH (06:00)
[2016-04-23] MEDS: MORPHINE ER 30 MG TABLET PO SCH (08:13)
[2016-04-23] MEDS: PANTOPRAZOLE 40 MG TABLET PO SCH (08:14)
[2016-04-23] MEDS: CIPROFLOXACIN INJ 400 MG in PREMIX 1 EACH IV SCH (08:15)
--- NOTE | 2016-04-23 08:55 | General Surgery Progress Note ---
Assessment and Plan - Time spent with patient Time spent with patient: Less than 30 minutes (1) Intra-abdominal free air of unknown etiology Status: Acute Assessment and plan: Impression: 1. Minimal amount of intraperitoneal free air following dilatation of stricture 2. Gastric outlet obstruction due to stenosis status post dilatation Plan: We will observe for now with IV fluids and sips of water. Surgery if he becomes worse But if he remains stable and improved without problems and we may be able to just observe it for now. 04/20/2016 Patient had a fairly good night in the evening his white count is 16,000 today and his hematocrit is down to 25. He's not complained of a lot of discomfort at this time has had no nausea during the night. His abdomen is flat soft there is hypoactive bowel sounds no unusual guarding or tenderness noted. At this point he seems to be stable with no unusual problems associated with the air the seen. He's tolerated water without any problems. I think the well to go ahead and try some clear liquids on him and see how he does with that. 04/21/2016 Patient seemed to of it better tolerating some full liquids without difficulty. Plan is to try to see if he can maintain himself nutritionally on this liquid for while for dances solid food. Dr. Stearns feel like we may have to scope him again at some point he may still come to surgery. 04/23/2016. Patient seems better no unusual tenderness present this time seems to be tolerating his present diet. Dr. Stearns's note indicating mail-in go home today be followed up later to see if he is going to remain open. I agree with this at this point in think is reasonable MCV 1 to improve her have to have surgery down the road. Current Visit: Yes Subjective Patient reports: Present: feels better, tolerating liquids well, afebrile Exam - Constitutional Vitals: Period Temp Pulse Resp BP Sys/[place] Pulse Ox Last 24 Hr 97.5 F-99.0 F 68-84 16-18 110-148/38-74 91-95 General appearance: mild distress - Head Head exam: Present: normal inspection - ENT ENT exam: Present: normal exam - Neck Neck exam: Present: normal inspection - Respiratory Respiratory exam: Present: clear to auscultation bilaterally, rales - Cardiovascular Cardiovascular exam: Present: RRR - GI/Abdominal GI/Abdominal exam: Present: normal bowel sounds, soft. Absent: tenderness - Extremities Exam Extremities exam: Present: normal inspection - Back Exam Back exam: Present: normal inspection - Neurological Exam Neurological exam: Present: alert, oriented X3, CN II-XII intact - Skin Skin exam: Present: normal color, warm, dry Results - Labs CBC & BMP: 04/21/16 05:56 04/21/16 05:56 Lab Results: I have reviewed the past 24 hour labs Quality Measures - Stroke Symptom Onset Unknown: No
[2016-04-23 09:00] LABS: Hematocrit 29.9 VOL% (42.0-52.0); Hemoglobin 8.8 GM/DL (14.0-18.0)
[2016-04-23 09:29] LABS: Calcium 7.7 MG/DL (8.5-10.1); Osmolality,Calculated 292.4 MOS/KG (273-304); Potassium 4.2 MMOL/L (3.5-5.1)
[2016-04-23] MEDS: FLUoxetine 20 MG CAPSULE PO SCH (11:32)
[2016-04-23 12:00] VITALS: BP 112/58
== END 2016-04-23 14:36 | disposition home or self-care (01) | DRG 395 ==
LOC: N.5E 09:53
PROVIDERS: ADMIT Internal Medicine Gastroenterology; ATTEND Internal Medicine Gastroenterology

== ENCOUNTER 2017-08-02 15:32 | Inpatient (IN) ==
[2017-08-02 16:07] LABS: Basophils % 0.1 % (0.0-0.8); Eosinophils % 0.6 % (0.00-10.9); Immature Granulocytes % 1.1 %; Immature Granulocytes Absolute 0.08 #; Lymphocytes # 1.6 10*3/uL (1.4-4.0); Lymphocytes % 23.2 % (21.2-54.2); Mean Corpuscular HGB Conc 24.8 GM/DL (32-36); Mean Corpuscular Hemoglobin 16 PG (27-34); Mean Corpuscular Volume 63.2 FL (87-102); Mean Platelet Volume 10.2 FL (9.6-12.0); Monocytes # 0.4 10*3/uL (0.11-0.8); Monocytes % 5.8 % (1.7-12.7); Neutrophils # 4.9 10*3/uL (1.4-7.4); Neutrophils % 69.2 % (38.7-73.9); Platelet Count 237 T/CUMM (130-400); Red Blood Count 2.42 MC/CUMM (3.8-5.5); Red Cell Distribution Width 19.8 % (9.3-17.3); White Blood Count 7.1 T/CUMM (4-12)
[2017-08-02 16:11] LABS: Hemoglobin 3.8 GM/DL (14.0-18.0)
[2017-08-02 16:12] LABS: Hematocrit 15.3 VOL% (42.0-52.0)
[2017-08-02 16:19] LABS: PT Patient Result 10.9 SECS; Partial Thromboplastin Time 21.3 SECS (0-40)
[2017-08-02 16:29] LABS: Hypochromasia 2+; Microcytosis 2+; Polychromasia 1+
[2017-08-02 16:30] LABS: Ovalocytes 1+
[2017-08-02 16:37] LABS: Alanine Aminotransferase 14 U/L (16-61); Albumin 3.3 G/DL (3.4-5.0); Alkaline Phosphatase 78 U/L (45-117); Aspartate Amino Transferase 7 U/L (0-37); Bilirubin,Total < 0.39 MG/DL (0.2-1.0); Blood Urea Nitrogen 17 MG/DL (7-18); Calcium 8.5 MG/DL (8.5-10.1); Glucose 132 MG/DL (74-106); Osmolality,Calculated 282.4 MOS/KG (273-304); Potassium 4.2 MMOL/L (3.5-5.1); Sodium 140 MMOL/L (136-145); Total Protein 6.4 G/DL (6.4-8.3)
[2017-08-02] MEDS ORDERED: diphenhydrAMINE 50 MG/1 ML VIAL IV PRN (18:22)
[2017-08-02] MEDS ORDERED: SODIUM CHLORIDE 0.9% 1,000 ML IV PRN (18:22)
[2017-08-02] MEDS ORDERED: ACETAMINOPHEN 325 MG TABLET PO PRN (18:22)
[2017-08-02 19:17] LABS: Free T4 (Free Thyroxine) 1.07 NG/DL (0.76-1.46); Thyroid Stimulating Hormone 0.525 uIU/ml (0.358-3.74)
[2017-08-02] MEDS ORDERED: MORPHINE ER 30 MG TABLET PO SCH (21:00)
[2017-08-02] MEDS: SODIUM CHLORIDE 0.9% 1,000 ML IV SCH (21:09)
[2017-08-02 21:31] LABS: Hematocrit 17.3 VOL% (42.0-52.0); Hemoglobin 4.7 GM/DL (14.0-18.0)
[2017-08-02] MEDS: MORPHINE ER 15 MG TABLET PO SCH (22:26)
[2017-08-02] MEDS: traZODone 50 MG TABLET PO PRN (22:26)
[2017-08-02] MEDS: oxyCODONE IR 5 MG TABLET PO PRN (23:46)
[2017-08-03] MEDS: LEVOTHYROXINE 175 MCG TABLET PO SCH (06:05)
[2017-08-03 06:25] LABS: Hemoglobin 7.2 GM/DL (14.0-18.0)
[2017-08-03 06:28] LABS: PT Patient Result 10.7 SECS
[2017-08-03] MEDS: MORPHINE ER 15 MG TABLET PO SCH (08:51)
[2017-08-03] MEDS: PANTOPRAZOLE 40 MG TABLET PO SCH (08:51)
[2017-08-03] MEDS: PARoxetine 20 MG TABLET PO SCH (08:51)
[2017-08-03] MEDS ORDERED: MORPHINE ER 15 MG TABLET PO SCH (09:00)
[2017-08-03 12:30] LABS: Hematocrit 28.2 VOL% (42.0-52.0); Hemoglobin 8.3 GM/DL (14.0-18.0)
[2017-08-03 14:20] LABS: Hematocrit 25.3 VOL% (42.0-52.0); Hemoglobin 7.6 GM/DL (14.0-18.0)
[2017-08-03] MEDS: SODIUM CHLORIDE 0.9% 1,000 ML IV SCH (14:46)
[2017-08-03] MEDS: FERROUS SULFATE 325 MG TABLET PO SCH (14:47)
[2017-08-03] MEDS: CYCLOBENZAPRINE 10 MG TABLET PO PRN ×2 (14:47→18:53)
[2017-08-03] MEDS: oxyCODONE IR 5 MG TABLET PO PRN (14:48)
[2017-08-03] MEDS: MORPHINE ER 30 MG TABLET PO SCH (20:42)
[2017-08-03] MEDS: traZODone 50 MG TABLET PO PRN (20:42)
[2017-08-04] MEDS: oxyCODONE IR 5 MG TABLET PO PRN ×2 (00:47→16:35)
[2017-08-04] MEDS: SODIUM CHLORIDE 0.9% 1,000 ML IV SCH ×3 (03:58→20:05)
[2017-08-04 05:14] LABS: Basophils # 0.1 10*3/uL (0.0-0.2); Basophils % 0.7 % (0.0-0.8); Eosinophils # 0.1 10*3/uL (0.0-0.87); Eosinophils % 1.5 % (0.00-10.9); Hematocrit 25.8 VOL% (42.0-52.0); Hemoglobin 7.7 GM/DL (14.0-18.0); Immature Granulocytes % 1.3 %; Immature Granulocytes Absolute 0.09 #; Lymphocytes # 2.2 10*3/uL (1.4-4.0); Lymphocytes % 31.9 % (21.2-54.2); Mean Corpuscular HGB Conc 29.8 GM/DL (32-36); Mean Corpuscular Hemoglobin 22 PG (27-34); Mean Corpuscular Volume 72.3 FL (87-102); Mean Platelet Volume 11.2 FL (9.6-12.0); Monocytes # 0.6 10*3/uL (0.11-0.8); Monocytes % 8.6 % (1.7-12.7); Neutrophils # 3.8 10*3/uL (1.4-7.4); Platelet Count 221 T/CUMM (130-400); Red Blood Count 3.57 MC/CUMM (3.8-5.5); Red Cell Distribution Width 25.8 % (9.3-17.3); White Blood Count 6.7 T/CUMM (4-12)
[2017-08-04 05:38] LABS: Hypochromasia 1+; Microcytosis Slight; Ovalocytes Slight; Platelet Estimate Adequate
[2017-08-04 05:47] LABS: Calcium 8.3 MG/DL (8.5-10.1); Osmolality,Calculated 280.1 MOS/KG (273-304); Potassium 3.7 MMOL/L (3.5-5.1)
[2017-08-04] MEDS: LEVOTHYROXINE 175 MCG TABLET PO SCH (06:30)
[2017-08-04] MEDS ORDERED: BISACODYL 5 MG TABLET PO ONE (12:00)
[2017-08-04] MEDS: PARoxetine 20 MG TABLET PO SCH (13:10)
[2017-08-04] MEDS: PANTOPRAZOLE 40 MG TABLET PO SCH (13:10)
[2017-08-04] MEDS: FERROUS SULFATE 325 MG TABLET PO SCH (13:10)
[2017-08-04] MEDS: MORPHINE ER 30 MG TABLET PO SCH ×2 (13:10→20:03)
[2017-08-04] MEDS ORDERED: PROPOFOL 200 MG/20 ML VIAL IV ONE (15:05)
[2017-08-04] MEDS ORDERED: LIDOCAINE 1% 5 ML VIAL ONE (15:05)
[2017-08-04] MEDS ORDERED: POLYETHYLENE GLYCOL 3350/ELECTROLYTES 4,000 ML BOTTLE PO ONE (18:00)
[2017-08-04] MEDS: traZODone 50 MG TABLET PO PRN (22:48)
[2017-08-04] MEDS: CYCLOBENZAPRINE 10 MG TABLET PO PRN (22:48)
[2017-08-05] MEDS: oxyCODONE IR 5 MG TABLET PO PRN (03:46)
[2017-08-05 06:00] LABS: Osmolality,Calculated 277.3 MOS/KG (273-304); Potassium 3.8 MMOL/L (3.5-5.1)
[2017-08-05] MEDS: LEVOTHYROXINE 175 MCG TABLET PO SCH (06:08)
[2017-08-05] MEDS: SODIUM CHLORIDE 0.9% 1,000 ML IV SCH (07:49)
[2017-08-05 07:56] LABS: Basophils % 0.8 % (0.0-0.8); Eosinophils # 0.1 10*3/uL (0.0-0.87); Eosinophils % 2.4 % (0.00-10.9); Hemoglobin 7.3 GM/DL (14.0-18.0); Immature Granulocytes % 0.6 %; Immature Granulocytes Absolute 0.03 #; Lymphocytes # 1.6 10*3/uL (1.4-4.0); Lymphocytes % 32.6 % (21.2-54.2); Mean Corpuscular HGB Conc 29.2 GM/DL (32-36); Mean Corpuscular Hemoglobin 22 PG (27-34); Mean Corpuscular Volume 74.2 FL (87-102); Mean Platelet Volume 10.4 FL (9.6-12.0); Monocytes # 0.4 10*3/uL (0.11-0.8); Monocytes % 8.6 % (1.7-12.7); Neutrophils # 2.7 10*3/uL (1.4-7.4); Platelet Count 187 T/CUMM (130-400); Red Blood Count 3.37 MC/CUMM (3.8-5.5); Red Cell Distribution Width 26.5 % (9.3-17.3); White Blood Count 4.9 T/CUMM (4-12)
[2017-08-05] MEDS: PARoxetine 20 MG TABLET PO SCH (08:03)
[2017-08-05] MEDS: PANTOPRAZOLE 40 MG TABLET PO SCH (08:04)
[2017-08-05] MEDS: FERROUS SULFATE 325 MG TABLET PO SCH (08:04)
[2017-08-05] MEDS: MORPHINE ER 30 MG TABLET PO SCH (08:05)
[2017-08-05 08:19] LABS: Hypochromasia 1+; Platelet Estimate Normal
[2017-08-05 08:20] LABS: Ovalocytes Slight
[2017-08-05 08:21] LABS: Microcytosis Slight
[2017-08-05] MEDS ORDERED: LIDOCAINE 1% 5 ML VIAL ONE (10:53)
[2017-08-05] MEDS ORDERED: PROPOFOL 200 MG/20 ML VIAL IV ONE (10:53)
[2017-08-05 14:50] VITALS: BP 123/76
== END 2017-08-05 15:00 | disposition home or self-care (01) | DRG 378 ==
LOC: N.ED 15:32 → N.EDINP 19:51 → N.ICU 20:13
PROVIDERS: ADMIT Family Medicine; ATTEND Family Medicine

== ENCOUNTER 2019-09-18 09:09 | Observation (INO) ==
[2019-09-18] MEDS ORDERED: SODIUM CHLORIDE 0.9% 500 ML IV STA (10:34)
[2019-09-18] MEDS ORDERED: SODIUM CHLORIDE 0.9% 1,000 ML IV STA (11:00)
[2019-09-18 11:15] LABS: Basophils % 0.3 % (0.0-0.8); Eosinophils % 0.7 % (0.00-10.9); Hematocrit 41.8 VOL% (42.0-52.0); Hemoglobin 13.7 GM/DL (14.0-18.0); Immature Granulocytes % 0.3 %; Immature Granulocytes Absolute 0.02 #; Lymphocytes # 1.3 10*3/uL (1.4-4.0); Lymphocytes % 22.8 % (21.2-54.2); Mean Corpuscular HGB Conc 32.8 GM/DL (32-36); Mean Corpuscular Volume 89.3 FL (87-102); Mean Platelet Volume 10.1 FL (9.6-12.0); Monocytes % 6.3 % (1.7-12.7); Neutrophils % 69.6 % (38.7-73.9); Platelet Count 301 T/CUMM (130-400); Red Blood Count 4.68 MC/CUMM (3.8-5.5); Red Cell Distribution Width 14.2 % (9.3-17.3); White Blood Count 5.9 T/CUMM (4-12)
[2019-09-18 11:37] LABS: Calcium 8.9 MG/DL (8.5-10.1); Osmolality,Calculated 284.4 MOS/KG (273-304)
[2019-09-18] MEDS ORDERED: ZALEPLON 5 MG CAPSULE PO PRN (12:16)
[2019-09-18] MEDS ORDERED: diphenhydrAMINE CAP 25 MG CAPSULE PO PRN (12:16)
[2019-09-18] MEDS ORDERED: ALUMINUM/MAGNES/SIMETH MAX STR 30 ML UDCUP PO PRN (12:16)
[2019-09-18] MEDS ORDERED: ONDANSETRON 4 MG/2 ML VIAL IV PRN (12:16)
[2019-09-18] MEDS ORDERED: MAGNESIUM SULF RIDER 2 GM in PREMIX 1 EACH IV PRN (12:16)
[2019-09-18] MEDS ORDERED: hydrALAZINE 20 MG/1 ML VIAL IV PRN (12:16)
[2019-09-18] MEDS ORDERED: DOCUSATE SODIUM 100 MG CAPSULE PO PRN (12:16)
[2019-09-18] MEDS ORDERED: SIMETHICONE CHEW 125 MG TABLET PO PRN (12:16)
[2019-09-18] MEDS ORDERED: MAGNESIUM SULF RIDER 4 GM in PREMIX 1 EACH IV PRN (12:16)
[2019-09-18] MEDS ORDERED: POTASSIUM CHLORIDE 20 MEQ TABLET PO PRN (12:16)
[2019-09-18] MEDS ORDERED: guaiFENesin/DM ER 600-30 MG TABLET PO PRN (12:16)
[2019-09-18] MEDS ORDERED: PROMETHAZINE 25 MG TABLET PO PRN (12:16)
[2019-09-18] MEDS ORDERED: oxyCODONE/ACETAMINOPHEN 5-325 MG TABLET PO PRN (12:18)
[2019-09-18] MEDS ORDERED: OXYMETAZOLINE 0.05% NASAL SPRAY 15 ML BOTTLE BOTH NARES PRN (12:18)
[2019-09-18] MEDS ORDERED: ACETAMINOPHEN 500 MG TABLET PO PRN (12:18)
[2019-09-18] MEDS ORDERED: [UNRECOGNIZED DRUG - OTHER] BOTH EYES PRN (12:18)
[2019-09-18] MEDS ORDERED: traZODone 50 MG TABLET PO PRN (12:18)
[2019-09-18] MEDS ORDERED: POTASSIUM CHLORIDE 20 MEQ TABLET PO STA (12:20)
[2019-09-18] MEDS: dilTIAZem Drip 125 MG/125 ML PREMIX IV SCH (12:34)
[2019-09-18 12:59] LABS: Free T4 (Free Thyroxine) 1.34 NG/DL (0.76-1.46); Thyroid Stimulating Hormone 0.178 uIU/ml (0.358-3.74)
[2019-09-18 14:29] LABS: Apearance,Urine CLEAR (Clear); Bilirubin,Urine Negative (Negative); Blood, Urine Small mg/dL (Negative); Glucose,Urine (UA) Negative (Negative); Ketones,Urine Negative (Negative); Mucus,Urine Occasional /LPF (Occasional); Nitrite,Urine Negative (Negative); Protein,Urine Negative; RBC,Urine 3 /HPF (0-4); Urine Color Yellow (Yellow); Urine Specific Gravity 1.015 (1.001-1.035); Urine Urobilinogen < 2.0 EU/DL (0.2-1.0)
[2019-09-18] MEDS ORDERED: MIDODRINE 5 MG TABLET PO SCH ×3 (15:00→15:34)
[2019-09-18] MEDS ORDERED: ENOXAPARIN 80 MG/0.8 ML SYRINGE SUBCUT ONE (15:23)
[2019-09-18] MEDS: MIDODRINE 5 MG TABLET PO SCH ×2 (16:15→21:17)
[2019-09-18] MEDS: FLUDROCORTISONE 0.1 MG TABLET PO SCH ×2 (16:15→21:17)
[2019-09-18] MEDS: SUCRALFATE 1 GM TABLET PO SCH ×2 (16:15→21:17)
[2019-09-18] MEDS: CELECOXIB 100 MG CAPSULE PO SCH (21:17)
[2019-09-18] MEDS: MORPHINE ER 30 MG TABLET PO SCH (21:17)
[2019-09-19 05:29] LABS: Basophils % 0.6 % (0.0-0.8); Eosinophils # 0.1 10*3/uL (0.0-0.87); Eosinophils % 1.9 % (0.00-10.9); Hematocrit 37.9 VOL% (42.0-52.0); Hemoglobin 12.3 GM/DL (14.0-18.0); Immature Granulocytes % 0.2 %; Immature Granulocytes Absolute 0.01 #; Lymphocytes # 1.9 10*3/uL (1.4-4.0); Lymphocytes % 37.1 % (21.2-54.2); Mean Corpuscular HGB Conc 32.5 GM/DL (32-36); Mean Corpuscular Volume 89.8 FL (87-102); Mean Platelet Volume 9.7 FL (9.6-12.0); Monocytes % 8.2 % (1.7-12.7); Platelet Count 256 T/CUMM (130-400); Red Blood Count 4.22 MC/CUMM (3.8-5.5); Red Cell Distribution Width 14.3 % (9.3-17.3); White Blood Count 5.2 T/CUMM (4-12)
[2019-09-19 06:02] LABS: Blood Urea Nitrogen 20 MG/DL (7-18); Calcium 8.5 MG/DL (8.5-10.1); Estimated Glom Filtration Rate 120 ML/MIN; Glucose 103 MG/DL (74-106); Osmolality,Calculated 283.3 MOS/KG (273-304); Troponin I < 0.015 NG/ML (0.00-0.045)
[2019-09-19] MEDS ORDERED: LEVOTHYROXINE 175 MCG TABLET PO SCH (07:00)
[2019-09-19] MEDS ORDERED: ENOXAPARIN 80 MG/0.8 ML SYRINGE SUBCUT ONE (07:08)
[2019-09-19] MEDS: FLUDROCORTISONE 0.1 MG TABLET PO SCH (08:29)
[2019-09-19] MEDS: SUCRALFATE 1 GM TABLET PO SCH ×2 (08:30→12:19)
[2019-09-19] MEDS: CELECOXIB 100 MG CAPSULE PO SCH (08:30)
[2019-09-19] MEDS: MORPHINE ER 30 MG TABLET PO SCH (08:30)
[2019-09-19] MEDS: MIDODRINE 5 MG TABLET PO SCH (08:36)
[2019-09-19] MEDS ORDERED: PREVAGEN PO SCH (09:00)
[2019-09-19] MEDS ORDERED: PARoxetine 20 MG TABLET PO SCH (09:00)
[2019-09-19] MEDS ORDERED: GLUCOSAMINE 500 MG TABLET PO SCH (09:00)
[2019-09-19] MEDS: dilTIAZem Drip 125 MG/125 ML PREMIX IV SCH (11:52)
[2019-09-19 12:06] VITALS: BP 105/77
[2019-09-19] MEDS ORDERED: APIXABAN 5 MG TABLET PO SCH (21:00)
[2019-09-20] MEDS ORDERED: LEVOTHYROXINE 137 MCG TABLET PO SCH (06:30)
[2019-09-22] MEDS ORDERED: LEVOTHYROXINE 137 MCG TABLET PO SCH (06:30)
== END 2019-09-19 13:28 | disposition home or self-care (01) ==
LOC: N.EDINP 09:09 → N.ED 09:09 → N.TELEN 14:36
PROVIDERS: ADMIT Internal Medicine Cardiovascular Disease; ATTEND Internal Medicine Cardiovascular Disease

== ENCOUNTER 2020-09-12 13:52 | Inpatient (IN) ==
[2020-09-12 15:06] LABS: Basophils % 0.6 % (0.0-0.8); Eosinophils # 0.1 10*3/uL (0.0-0.87); Eosinophils % 1.5 % (0.00-10.9); Hemoglobin 7.9 GM/DL (14.0-18.0); Immature Granulocytes % 0.4 %; Immature Granulocytes Absolute 0.02 #; Lymphocytes % 36.2 % (21.2-54.2); Mean Corpuscular HGB Conc 31.6 GM/DL (32-36); Mean Corpuscular Volume 86.5 FL (87-102); Mean Platelet Volume 10.2 FL (9.6-12.0); Monocytes % 7.5 % (1.7-12.7); Neutrophils % 53.8 % (38.7-73.9); Platelet Count 265 T/CUMM (130-400); Red Blood Count 2.89 MC/CUMM (3.8-5.5); Red Cell Distribution Width 15.4 % (9.3-17.3); White Blood Count 5.4 T/CUMM (4-12)
[2020-09-12 15:26] LABS: Alanine Aminotransferase 115 U/L (16-61); Albumin 3.4 G/DL (3.4-5.0); Alkaline Phosphatase 125 U/L (45-117); Aspartate Amino Transferase 44 U/L (0-37); Bilirubin,Total < 0.39 MG/DL (0.20-1.00); Blood Urea Nitrogen 29 MG/DL (7-18); Calcium 8.2 MG/DL (8.5-10.1); Carbon Dioxide 29 MMOL/L (21-32); Estimated Glom Filtration Rate 120 ML/MIN; Glucose 92 MG/DL (74-106); Osmolality,Calculated 282.5 MOS/KG (273-304); Sodium 139 MMOL/L (136-145); Total Protein 6.3 G/DL (6.4-8.2)
[2020-09-12 15:33] LABS: PT Patient Result 10.9 SECS (10.5-12.0); Partial Thromboplastin Time 22.2 SECS (23.9-33.8)
[2020-09-12] MEDS ORDERED: SODIUM CHLORIDE 0.9% 1,000 ML IV STA (18:00)
[2020-09-12] MEDS ORDERED: SODIUM CHLORIDE 0.9% 1,000 ML IV PRN (18:21)
[2020-09-12] MEDS ORDERED: GLUCAGON 1 MG VIAL IM PRN (19:48)
[2020-09-12] MEDS ORDERED: ONDANSETRON 4 MG/2 ML VIAL IV PRN (19:48)
[2020-09-12 21:50] LABS: Hepatitis B Core IgM Quant < 0.05 Index; Hepatitis B Surface Ag Quant < 0.10 Index; Hepatitis B Surface Ag Result Non-Reactive (NonReactive); Hepatitis C Virus Ab Quant 0.02 Index; Hepatitis C Virus Ab Result Non-Reactive (NonReactive)
[2020-09-13] MEDS: SODIUM CHLORIDE 0.9% 1,000 ML IV SCH ×2 (00:40→14:08)
[2020-09-13] MEDS: MORPHINE 2 MG/1 ML SYRINGE IV PRN ×2 (02:48→14:16)
[2020-09-13 05:16] LABS: Basophils % 0.7 % (0.0-0.8); Eosinophils # 0.1 10*3/uL (0.0-0.87); Hematocrit 25.4 VOL% (42.0-52.0); Hemoglobin 8.3 GM/DL (14.0-18.0); Immature Granulocytes % 0.7 %; Immature Granulocytes Absolute 0.03 #; Lymphocytes # 1.6 10*3/uL (1.4-4.0); Lymphocytes % 39.7 % (21.2-54.2); Mean Corpuscular HGB Conc 32.7 GM/DL (32-36); Mean Corpuscular Volume 86.7 FL (87-102); Mean Platelet Volume 10.1 FL (9.6-12.0); Monocytes % 7.1 % (1.7-12.7); Neutrophils % 48.8 % (38.7-73.9); Platelet Count 219 T/CUMM (130-400); Red Blood Count 2.93 MC/CUMM (3.8-5.5); Red Cell Distribution Width 15.5 % (9.3-17.3); White Blood Count 4.1 T/CUMM (4-12)
[2020-09-13 05:41] LABS: Albumin 3.2 G/DL (3.4-5.0); Bilirubin,Total 0.9 MG/DL (0.20-1.00); Calcium 7.9 MG/DL (8.5-10.1); Osmolality,Calculated 283.1 MOS/KG (273-304); Potassium 4.2 MMOL/L (3.5-5.1); Total Protein 5.7 G/DL (6.4-8.2)
[2020-09-13] MEDS ORDERED: traZODone 50 MG TABLET PO PRN (08:29)
[2020-09-13 09:11] LABS: Hematocrit 24.9 VOL% (42.0-52.0)
[2020-09-13] MEDS: PANTOPRAZOLE 40 MG VIAL IV SCH (09:29)
[2020-09-13] MEDS ORDERED: ACETAMINOPHEN 325 MG TABLET PO PRN (09:56)
[2020-09-13] MEDS ORDERED: MORPHINE ER 30 MG TABLET PO PRN (10:32)
[2020-09-13] MEDS ORDERED: LACTATED RINGERS 1,000 ML IV SCH (11:00)
[2020-09-13] MEDS: PARoxetine 20 MG TABLET PO SCH (11:08)
[2020-09-13] MEDS ORDERED: propofoL 200 MG/20 ML VIAL IV ONE (12:40)
[2020-09-13] MEDS ORDERED: LIDOCAINE 2% 5 ML VIAL ONE (12:58)
[2020-09-13 16:07] LABS: Hemoglobin 8.4 GM/DL (14.0-18.0)
[2020-09-13] MEDS: MIDODRINE 5 MG TABLET PO SCH ×2 (16:17→20:52)
[2020-09-13] MEDS: oxyCODONE/ACETAMINOPHEN 5-325 MG TABLET PO PRN (20:51)
[2020-09-13] MEDS: FLUDROCORTISONE 0.1 MG TABLET PO SCH (20:51)
[2020-09-14] MEDS: oxyCODONE/ACETAMINOPHEN 5-325 MG TABLET PO PRN ×2 (03:49→09:21)
[2020-09-14] MEDS: SODIUM CHLORIDE 0.9% 1,000 ML IV SCH (03:52)
[2020-09-14 04:21] LABS: Basophils % 0.6 % (0.0-0.8); Eosinophils # 0.1 10*3/uL (0.0-0.87); Eosinophils % 2.3 % (0.00-10.9); Hemoglobin 8.1 GM/DL (14.0-18.0); Immature Granulocytes % 0.3 %; Immature Granulocytes Absolute 0.01 #; Lymphocytes # 0.9 10*3/uL (1.4-4.0); Lymphocytes % 27.3 % (21.2-54.2); Mean Corpuscular HGB Conc 31.2 GM/DL (32-36); Mean Corpuscular Volume 88.7 FL (87-102); Mean Platelet Volume 9.8 FL (9.6-12.0); Monocytes % 9.1 % (1.7-12.7); Neutrophils % 60.4 % (38.7-73.9); Platelet Count 214 T/CUMM (130-400); Red Blood Count 2.93 MC/CUMM (3.8-5.5); Red Cell Distribution Width 15.4 % (9.3-17.3); White Blood Count 3.4 T/CUMM (4-12)
[2020-09-14 04:38] LABS: Bilirubin,Total 0.4 MG/DL (0.20-1.00); Calcium 7.9 MG/DL (8.5-10.1); Potassium 3.6 MMOL/L (3.5-5.1); Total Protein 5.7 G/DL (6.4-8.2)
[2020-09-14] MEDS ORDERED: LEVOTHYROXINE 150 MCG TABLET PO SCH (06:30)
[2020-09-14] MEDS ORDERED: LEVOTHYROXINE 137 MCG TABLET PO SCH (06:30)
[2020-09-14] MEDS: PARoxetine 20 MG TABLET PO SCH (09:14)
[2020-09-14] MEDS: FLUDROCORTISONE 0.1 MG TABLET PO SCH (09:14)
[2020-09-14] MEDS: PANTOPRAZOLE 40 MG VIAL IV SCH (09:15)
[2020-09-14] MEDS: MIDODRINE 5 MG TABLET PO SCH (09:15)
[2020-09-14] MEDS ORDERED: SUCRALFATE 1 GM/10 ML UDCUP PO SCH (11:30)
[2020-09-14 12:36] VITALS: BP 127/70
== END 2020-09-14 12:25 | disposition home or self-care (01) | DRG 813 ==
LOC: N.ED 13:52 → N.4E 19:47
PROVIDERS: ADMIT Emergency Medicine; ATTEND Emergency Medicine

== ENCOUNTER 2021-01-21 13:07 | Observation (INO) ==
[2021-01-21] MEDS ORDERED: SODIUM CHLORIDE 0.9% 1,000 ML IV STA ×2 (13:31→15:41)
[2021-01-21 14:22] LABS: Basophils % 0.7 % (0.0-0.8); Hematocrit 27.6 VOL% (42.0-52.0); Immature Granulocytes % 0.2 %; Immature Granulocytes Absolute 0.01 #; Lymphocytes # 1.2 10*3/uL (1.4-4.0); Lymphocytes % 30.4 % (21.2-54.2); Mean Corpuscular Volume 72.4 FL (87-102); Mean Platelet Volume 10.6 FL (9.6-12.0); Monocytes % 9.2 % (1.7-12.7); Neutrophils % 58.5 % (38.7-73.9); Platelet Count 203 T/CUMM (130-400); Red Blood Count 3.81 MC/CUMM (3.8-5.5); Red Cell Distribution Width 15.8 % (9.3-17.3)
[2021-01-21 14:28] LABS: Bilirubin,Urine Negative (Negative); Blood, Urine Small mg/dL (Negative); Glucose,Urine (UA) Negative (Negative); Ketones,Urine Negative (Negative); Mucus,Urine Occasional /LPF (Occasional); Nitrite,Urine Negative (Negative); Protein,Urine Negative; RBC,Urine <1 /HPF (0-4); Urine Appearance CLEAR (Clear); Urine Color Yellow (Yellow); Urine Specific Gravity 1.014 (1.001-1.035); Urine Urobilinogen < 2.0 EU/DL (0.2-1.0)
[2021-01-21 14:40] LABS: Albumin 3.4 G/DL (3.4-5.0); Bilirubin,Total 1.8 MG/DL (0.20-1.00); Calcium 8.4 MG/DL (8.5-10.1); Total Protein 6.7 G/DL (6.4-8.2)
[2021-01-21 14:41] LABS: PT Patient Result 10.9 SECS (10.5-12.0)
[2021-01-21] MEDS ORDERED: SODIUM CHLORIDE 0.9% 1,000 ML IV PRN ×3 (15:42→16:39)
[2021-01-21] MEDS ORDERED: ONDANSETRON 4 MG/2 ML VIAL IV PRN (16:01)
[2021-01-21] MEDS ORDERED: ACETAMINOPHEN 325 MG TABLET PO PRN (16:01)
[2021-01-21] MEDS ORDERED: INFLUENZA VIRUS VACCINE 0.5 ML SYRINGE IM ONE (18:07)
[2021-01-21] MEDS ORDERED: FUROSEMIDE 20 MG/2 ML VIAL IV ONE (20:00)
[2021-01-21] MEDS: FLUDROCORTISONE 0.1 MG TABLET PO SCH (20:57)
[2021-01-21] MEDS: APIXABAN 5 MG TABLET PO SCH (20:58)
[2021-01-21] MEDS: MORPHINE ER 30 MG TABLET PO SCH (20:58)
[2021-01-21] MEDS: MIDODRINE 5 MG TABLET PO SCH (20:58)
[2021-01-21] MEDS ORDERED: FLUoxetine 20 MG CAPSULE PO SCH (21:00)
[2021-01-22] MEDS: oxyCODONE/ACETAMINOPHEN 5-325 MG TABLET PO PRN ×2 (02:10→13:56)
[2021-01-22 06:06] LABS: Basophils % 0.5 % (0.0-0.8); Eosinophils # 0.1 10*3/uL (0.0-0.87); Eosinophils % 1.7 % (0.00-10.9); Hematocrit 35.4 VOL% (42.0-52.0); Immature Granulocytes % 0.2 %; Immature Granulocytes Absolute 0.01 #; Lymphocytes # 2.1 10*3/uL (1.4-4.0); Lymphocytes % 36.2 % (21.2-54.2); Mean Corpuscular HGB Conc 30.2 GM/DL (32-36); Mean Corpuscular Volume 74.7 FL (87-102); Mean Platelet Volume 10.1 FL (9.6-12.0); Monocytes % 11.5 % (1.7-12.7); Neutrophils % 49.9 % (38.7-73.9); Platelet Count 224 T/CUMM (130-400); Red Cell Distribution Width 17.2 % (9.3-17.3)
[2021-01-22 06:17] LABS: Albumin 3.4 G/DL (3.4-5.0); Bilirubin,Total 0.6 MG/DL (0.20-1.00); Calcium 8.6 MG/DL (8.5-10.1); Osmolality,Calculated 281.3 MOS/KG (273-304); Potassium 4.1 MMOL/L (3.5-5.1); Total Protein 7.2 G/DL (6.4-8.2)
[2021-01-22 06:20] LABS: Hemoglobin 10.7 GM/DL (14.0-18.0); Red Blood Count 4.74 MC/CUMM (3.8-5.5); White Blood Count 5.8 T/CUMM (4-12)
[2021-01-22] MEDS ORDERED: LEVOTHYROXINE 137 MCG TABLET PO SCH (06:30)
[2021-01-22] MEDS ORDERED: PANTOPRAZOLE 40 MG TABLET PO SCH (09:00)
[2021-01-22] MEDS ORDERED: PARoxetine 20 MG TABLET PO SCH (09:00)
[2021-01-22] MEDS ORDERED: IRON (CARBONYL)/VIT C/B12/FA TABLET PO SCH (09:00)
[2021-01-22] MEDS: APIXABAN 5 MG TABLET PO SCH (09:05)
[2021-01-22] MEDS: FLUDROCORTISONE 0.1 MG TABLET PO SCH (09:06)
[2021-01-22] MEDS: MORPHINE ER 30 MG TABLET PO SCH (09:07)
[2021-01-22] MEDS: MIDODRINE 5 MG TABLET PO SCH ×2 (09:07→15:47)
[2021-01-22 11:41] VITALS: BP 145/76
[2021-01-22] MEDS ORDERED: INFLUENZA VIRUS VACCINE 0.5 ML SYRINGE IM ONE (12:00)
== END 2021-01-22 15:47 | disposition home health service (06) ==
LOC: SUATTDRO → N.ED 13:07 → INTOOBSV 16:01 → N.EDINP 16:01 → N.TELEN 16:55
PROVIDERS: ADMIT Internal Medicine; ATTEND Internal Medicine

== ENCOUNTER 2021-11-03 11:40 | Observation (INO) ==
[2021-11-03] MEDS ORDERED: ONDANSETRON 4 MG/2 ML VIAL IV STA (12:07)
[2021-11-03] MEDS ORDERED: HYDROmorphone 1 MG/1 ML SYRINGE IV STA (12:07)
[2021-11-03 12:13] LABS: Basophils % 0.6 % (0.0-0.8); Eosinophils # 0.1 10*3/uL (0.0-0.87); Eosinophils % 1.2 % (0.00-10.9); Hematocrit 35.6 VOL% (42.0-52.0); Hemoglobin 11.7 GM/DL (14.0-18.0); Immature Granulocytes Absolute 0.05 #; Lymphocytes % 20.8 % (21.2-54.2); Mean Corpuscular HGB Conc 32.9 GM/DL (32-36); Mean Corpuscular Volume 90.1 FL (87-102); Mean Platelet Volume 9.2 FL (9.6-12.0); Monocytes # 0.3 10*3/uL (0.11-0.8); Monocytes % 5.4 % (1.7-12.7); Platelet Count 180 T/CUMM (130-400); Red Blood Count 3.95 MC/CUMM (3.8-5.5); Red Cell Distribution Width 16.7 % (9.3-17.3)
[2021-11-03 12:25] LABS: Calcium 8.1 MG/DL (8.5-10.1); Osmolality,Calculated 277.5 MOS/KG (273-304); Potassium 3.9 MMOL/L (3.5-5.1)
[2021-11-03] MEDS ORDERED: DEXTROSE 10% 250 ML BAG IV PRN ×2 (13:25→13:39)
[2021-11-03] MEDS ORDERED: LACTULOSE 20 GM/30 ML UDCUP PO PRN (13:32)
[2021-11-03] MEDS ORDERED: ACETAMINOPHEN 325 MG TABLET PO PRN (13:32)
[2021-11-03] MEDS ORDERED: GLUCAGON 1 MG VIAL IM PRN (13:32)
[2021-11-03] MEDS ORDERED: ONDANSETRON 4 MG/2 ML VIAL IV PRN (13:32)
[2021-11-03] MEDS ORDERED: ZALEPLON 5 MG CAPSULE PO PRN (13:32)
[2021-11-03] MEDS: MIDODRINE 5 MG TABLET PO SCH ×2 (14:58→20:57)
[2021-11-03] MEDS: oxyCODONE/ACETAMINOPHEN 5-325 MG TABLET PO PRN (16:56)
[2021-11-03] MEDS: HYDROmorphone 1 MG/1 ML SYRINGE IV PRN (18:45)
[2021-11-03] MEDS: FLUDROCORTISONE 0.1 MG TABLET PO SCH (20:56)
[2021-11-03] MEDS: GABAPENTIN 300 MG CAPSULE PO SCH (20:57)
[2021-11-03] MEDS: DOCUSATE SODIUM 100 MG CAPSULE PO SCH (20:57)
[2021-11-03] MEDS: APIXABAN 5 MG TABLET PO SCH (20:57)
[2021-11-03] MEDS ORDERED: ENOXAPARIN 40 MG/0.4 ML SYRINGE SUBCUT SCH (21:00)
[2021-11-03] MEDS ORDERED: FLUoxetine 20 MG CAPSULE PO PRN (21:00)
[2021-11-04] MEDS: HYDROmorphone 1 MG/1 ML SYRINGE IV PRN ×3 (03:13→11:28)
[2021-11-04 05:08] LABS: Basophils % 0.3 % (0.0-0.8); Eosinophils # 0.1 10*3/uL (0.0-0.87); Eosinophils % 1.1 % (0.00-10.9); Hematocrit 35.7 VOL% (42.0-52.0); Hemoglobin 11.5 GM/DL (14.0-18.0); Immature Granulocytes % 0.4 %; Immature Granulocytes Absolute 0.03 #; Lymphocytes # 1.4 10*3/uL (1.4-4.0); Lymphocytes % 19.4 % (21.2-54.2); Mean Corpuscular HGB Conc 32.2 GM/DL (32-36); Mean Corpuscular Volume 92.2 FL (87-102); Mean Platelet Volume 10.1 FL (9.6-12.0); Monocytes # 0.4 10*3/uL (0.11-0.8); Monocytes % 5.1 % (1.7-12.7); Neutrophils % 73.7 % (38.7-73.9); Platelet Count 193 T/CUMM (130-400); Red Blood Count 3.87 MC/CUMM (3.8-5.5); Red Cell Distribution Width 16.7 % (9.3-17.3); White Blood Count 7.4 T/CUMM (4-12)
[2021-11-04 05:25] LABS: Calcium 7.9 MG/DL (8.5-10.1); Osmolality,Calculated 276.7 MOS/KG (273-304); Potassium 3.4 MMOL/L (3.5-5.1)
[2021-11-04] MEDS: POTASSIUM CHLORIDE 20 MEQ TABLET PO PRN ×3 (06:00→11:42)
[2021-11-04] MEDS ORDERED: LEVOTHYROXINE 137 MCG TABLET PO SCH (06:30)
[2021-11-04] MEDS ORDERED: METOPROLOL SUCCINATE XL 25 MG TABLET PO SCH (09:00)
[2021-11-04] MEDS ORDERED: PARoxetine 20 MG TABLET PO SCH (09:00)
[2021-11-04] MEDS ORDERED: PANTOPRAZOLE 40 MG TABLET PO SCH (09:00)
[2021-11-04] MEDS: DOCUSATE SODIUM 100 MG CAPSULE PO SCH (09:06)
[2021-11-04] MEDS: FLUDROCORTISONE 0.1 MG TABLET PO SCH (09:06)
[2021-11-04] MEDS: GABAPENTIN 300 MG CAPSULE PO SCH (09:07)
[2021-11-04] MEDS: oxyCODONE/ACETAMINOPHEN 5-325 MG TABLET PO PRN (09:07)
[2021-11-04] MEDS: MIDODRINE 5 MG TABLET PO SCH ×2 (09:07→14:01)
[2021-11-04] MEDS: APIXABAN 5 MG TABLET PO SCH (09:07)
[2021-11-04 15:45] VITALS: BP 125/44
== END 2021-11-04 17:05 | disposition home or self-care (01) ==
LOC: N.EDINP 11:40 → N.ED 11:40 → N.EDINP 13:10 → INTOOBSV 13:10 → SUATTDRO 13:10 → N.EDINP 14:27 → N.3E 14:27
PROVIDERS: ADMIT Hospitalist; ATTEND Internal Medicine Geriatric Medicine

== ENCOUNTER 2022-03-19 10:06 | Inpatient (IN) ==
[2022-03-19 11:27] LABS: Basophils % 0.2 % (0.0-0.8); Eosinophils % 0.1 % (0.00-10.9); Hemoglobin 10.1 GM/DL (14.0-18.0); Immature Granulocytes % 0.5 %; Immature Granulocytes Absolute 0.06 #; Lymphocytes # 1.4 10*3/uL (1.4-4.0); Lymphocytes % 11.3 % (21.2-54.2); Mean Corpuscular HGB Conc 30.6 GM/DL (32-36); Mean Corpuscular Volume 79.3 FL (87-102); Monocytes # 0.8 10*3/uL (0.11-0.8); Monocytes % 6.1 % (1.7-12.7); Neutrophils % 81.8 % (38.7-73.9); Platelet Count 508 T/CUMM (130-400); Red Blood Count 4.16 MC/CUMM (3.8-5.5); Red Cell Distribution Width 18.3 % (9.3-17.3); White Blood Count 12.5 T/CUMM (4-12)
[2022-03-19 11:50] LABS: Alanine Aminotransferase 20 U/L (16-61); Albumin 2.8 G/DL (3.4-5.0); Alkaline Phosphatase 99 U/L (45-117); Aspartate Amino Transferase 16 U/L (0-37); Bilirubin,Total < 0.39 MG/DL (0.20-1.00); Blood Urea Nitrogen 23 MG/DL (7-18); Calcium 8.9 MG/DL (8.5-10.1); Carbon Dioxide 28 MMOL/L (21-32); Chloride 104 MMOL/L (98-107); Glucose 137 MG/DL (74-106); Osmolality,Calculated 278.8 MOS/KG (273-304); Potassium 4.2 MMOL/L (3.5-5.1); Sodium 137 MMOL/L (136-145); Total Protein 7.2 G/DL (6.4-8.2)
[2022-03-19] MEDS ORDERED: SODIUM CHLORIDE 0.9% 1,000 ML IV STA (12:18)
[2022-03-19] MEDS ORDERED: ZALEPLON 5 MG CAPSULE PO PRN (13:12)
[2022-03-19] MEDS ORDERED: hydrALAZINE 20 MG/1 ML VIAL IV PRN (13:12)
[2022-03-19] MEDS ORDERED: guaiFENesin/DM ER 600-30 MG TABLET PO PRN (13:12)
[2022-03-19] MEDS ORDERED: ACETAMINOPHEN 325 MG TABLET PO PRN (13:12)
[2022-03-19] MEDS ORDERED: ONDANSETRON 4 MG/2 ML VIAL IV PRN (13:12)
[2022-03-19] MEDS ORDERED: diphenhydrAMINE CAP 25 MG CAPSULE PO PRN (13:12)
[2022-03-19] MEDS ORDERED: MEROPENEM 500 MG in SODIUM CHLORIDE 0.9% 100 ML IV SCH (15:00)
[2022-03-19] MEDS: MEROPENEM 500 MG in SODIUM CHLORIDE 0.9% 100 ML IV SCH ×2 (17:07→21:19)
[2022-03-19] MEDS: SODIUM CHLORIDE 0.9% 1,000 ML IV SCH (17:07)
[2022-03-19] MEDS ORDERED: INFLUENZA VIRUS VACCINE 0.5 ML SYRINGE IM ONE (18:21)
[2022-03-19] MEDS ORDERED: traZODone 50 MG TABLET PO PRN (19:09)
[2022-03-19] MEDS: ALBUTEROL 2.5 MG/3 ML NEB RESP TX SCH (20:21)
[2022-03-19] MEDS ORDERED: MORPHINE ER 30 MG TABLET PO PRN (21:00)
[2022-03-19] MEDS ORDERED: ENOXAPARIN 40 MG/0.4 ML SYRINGE SUBCUT SCH (21:00)
[2022-03-19] MEDS: DOCUSATE SODIUM 100 MG CAPSULE PO SCH (21:18)
[2022-03-19] MEDS: GABAPENTIN 300 MG CAPSULE PO SCH (21:18)
[2022-03-20] MEDS: MEROPENEM 500 MG in SODIUM CHLORIDE 0.9% 100 ML IV SCH ×2 (03:01→08:48)
[2022-03-20 05:41] LABS: Basophils % 0.4 % (0.0-0.8); Eosinophils % 0.4 % (0.00-10.9); Hematocrit 31.5 VOL% (42.0-52.0); Hemoglobin 9.3 GM/DL (14.0-18.0); Immature Granulocytes % 0.4 %; Immature Granulocytes Absolute 0.03 #; Lymphocytes # 2.2 10*3/uL (1.4-4.0); Lymphocytes % 28.3 % (21.2-54.2); Mean Corpuscular HGB Conc 29.5 GM/DL (32-36); Mean Platelet Volume 9.3 FL (9.6-12.0); Monocytes # 0.5 10*3/uL (0.11-0.8); Monocytes % 6.9 % (1.7-12.7); Neutrophils % 63.6 % (38.7-73.9); Platelet Count 436 T/CUMM (130-400); Red Blood Count 3.89 MC/CUMM (3.8-5.5); Red Cell Distribution Width 18.6 % (9.3-17.3); White Blood Count 7.8 T/CUMM (4-12)
[2022-03-20 05:55] LABS: Calcium 8.7 MG/DL (8.5-10.1); Osmolality,Calculated 284.8 MOS/KG (273-304); Potassium 4.1 MMOL/L (3.5-5.1); Risk Ratio 2.95; Thyroid Stimulating Hormone 1.38 uIU/ml (0.358-3.74); VLDL Cholesterol 23.6 MG/DL
[2022-03-20] MEDS: SODIUM CHLORIDE 0.9% 1,000 ML IV SCH ×2 (05:57→23:28)
[2022-03-20] MEDS: ALBUTEROL 2.5 MG/3 ML NEB RESP TX SCH ×4 (07:05→20:21)
[2022-03-20] MEDS: LEVOTHYROXINE 150 MCG TABLET PO SCH (07:34)
[2022-03-20] MEDS: oxyCODONE/ACETAMINOPHEN 5-325 MG TABLET PO PRN ×2 (07:34→15:48)
[2022-03-20] MEDS: DOCUSATE SODIUM 100 MG CAPSULE PO SCH ×2 (08:48→20:52)
[2022-03-20] MEDS: GABAPENTIN 300 MG CAPSULE PO SCH ×2 (08:49→20:52)
[2022-03-20] MEDS: PANTOPRAZOLE 40 MG TABLET PO SCH (08:49)
[2022-03-20] MEDS: PARoxetine 20 MG TABLET PO SCH (08:49)
[2022-03-20] MEDS: MORPHINE ER 30 MG TABLET PO SCH ×2 (08:49→20:52)
[2022-03-20] MEDS: CEFEPIME 1,000 MG in SODIUM CHLORIDE 0.9% 100 ML IV SCH ×2 (14:41→20:54)
[2022-03-20] MEDS: APIXABAN 5 MG TABLET PO SCH (20:52)
[2022-03-21] MEDS: ALBUTEROL 2.5 MG/3 ML NEB RESP TX SCH ×4 (01:05→20:54)
[2022-03-21] MEDS: CEFEPIME 1,000 MG in SODIUM CHLORIDE 0.9% 100 ML IV SCH ×4 (02:48→20:39)
[2022-03-21] MEDS: LEVOTHYROXINE 150 MCG TABLET PO SCH (06:03)
[2022-03-21 06:34] LABS: Basophils % 0.5 % (0.0-0.8); Eosinophils # 0.1 10*3/uL (0.0-0.87); Eosinophils % 0.9 % (0.00-10.9); Hematocrit 32.7 VOL% (42.0-52.0); Hemoglobin 9.9 GM/DL (14.0-18.0); Immature Granulocytes % 0.3 %; Immature Granulocytes Absolute 0.02 #; Lymphocytes % 30.8 % (21.2-54.2); Mean Corpuscular HGB Conc 30.3 GM/DL (32-36); Mean Corpuscular Volume 81.3 FL (87-102); Monocytes # 0.5 10*3/uL (0.11-0.8); Monocytes % 7.3 % (1.7-12.7); Neutrophils % 60.2 % (38.7-73.9); Platelet Count 406 T/CUMM (130-400); Red Blood Count 4.02 MC/CUMM (3.8-5.5); Red Cell Distribution Width 18.6 % (9.3-17.3); White Blood Count 6.4 T/CUMM (4-12)
[2022-03-21 06:52] LABS: Calcium 8.5 MG/DL (8.5-10.1); Potassium 4.3 MMOL/L (3.5-5.1)
[2022-03-21] MEDS: APIXABAN 5 MG TABLET PO SCH ×2 (08:36→20:38)
[2022-03-21] MEDS: PANTOPRAZOLE 40 MG TABLET PO SCH (08:36)
[2022-03-21] MEDS: MORPHINE ER 30 MG TABLET PO SCH ×2 (08:36→20:38)
[2022-03-21] MEDS: PARoxetine 20 MG TABLET PO SCH (08:36)
[2022-03-21] MEDS: GABAPENTIN 300 MG CAPSULE PO SCH ×2 (08:36→20:38)
[2022-03-21] MEDS: DOCUSATE SODIUM 100 MG CAPSULE PO SCH ×2 (08:36→20:39)
[2022-03-21] MEDS: oxyCODONE/ACETAMINOPHEN 5-325 MG TABLET PO PRN (12:01)
[2022-03-22] MEDS: ALBUTEROL 2.5 MG/3 ML NEB RESP TX SCH ×2 (01:34→07:11)
[2022-03-22] MEDS: oxyCODONE/ACETAMINOPHEN 5-325 MG TABLET PO PRN (03:22)
[2022-03-22] MEDS: CEFEPIME 1,000 MG in SODIUM CHLORIDE 0.9% 100 ML IV SCH ×2 (03:23→08:42)
[2022-03-22] MEDS: LEVOTHYROXINE 150 MCG TABLET PO SCH (05:53)
[2022-03-22] MEDS: PARoxetine 20 MG TABLET PO SCH (08:42)
[2022-03-22] MEDS: DOCUSATE SODIUM 100 MG CAPSULE PO SCH (08:42)
[2022-03-22] MEDS: APIXABAN 5 MG TABLET PO SCH (08:42)
[2022-03-22] MEDS: MORPHINE ER 30 MG TABLET PO SCH (08:42)
[2022-03-22] MEDS: GABAPENTIN 300 MG CAPSULE PO SCH (08:42)
[2022-03-22] MEDS: PANTOPRAZOLE 40 MG TABLET PO SCH (08:42)
[2022-03-22 09:58] LABS: Basophils % 0.7 % (0.0-0.8); Eosinophils # 0.1 10*3/uL (0.0-0.87); Eosinophils % 1.7 % (0.00-10.9); Hematocrit 33.1 VOL% (42.0-52.0); Immature Granulocytes % 0.5 %; Immature Granulocytes Absolute 0.03 #; Lymphocytes # 1.4 10*3/uL (1.4-4.0); Mean Corpuscular HGB Conc 30.2 GM/DL (32-36); Mean Corpuscular Volume 80.1 FL (87-102); Mean Platelet Volume 8.8 FL (9.6-12.0); Monocytes # 0.5 10*3/uL (0.11-0.8); Monocytes % 8.6 % (1.7-12.7); Neutrophils % 63.5 % (38.7-73.9); Platelet Count 368 T/CUMM (130-400); Red Blood Count 4.13 MC/CUMM (3.8-5.5); Red Cell Distribution Width 18.3 % (9.3-17.3); White Blood Count 5.7 T/CUMM (4-12)
[2022-03-22 10:10] LABS: Alanine Aminotransferase 27 U/L (16-61); Albumin 2.9 G/DL (3.4-5.0); Alkaline Phosphatase 99 U/L (45-117); Aspartate Amino Transferase 21 U/L (0-37); Bilirubin,Total < 0.39 MG/DL (0.20-1.00); Blood Urea Nitrogen 11 MG/DL (7-18); Calcium 8.3 MG/DL (8.5-10.1); Carbon Dioxide 30 MMOL/L (21-32); Chloride 107 MMOL/L (98-107); Glucose 104 MG/DL (74-106); Osmolality,Calculated 279.3 MOS/KG (273-304); Sodium 141 MMOL/L (136-145); Total Protein 6.7 G/DL (6.4-8.2)
[2022-03-22 11:59] VITALS: BP 128/86
== END 2022-03-22 12:43 | disposition home or self-care (01) | DRG 179 ==
LOC: N.ED 10:06 → N.EDINP 13:12 → N.3E 18:17
PROVIDERS: ADMIT Internal Medicine; ATTEND Internal Medicine